=== PATIENT | female | born 1940 | race Caucasian/White ===

== ENCOUNTER 2021-11-26 11:03 | Outpatient (CLI) | payer MEDICARE, OTHER, SELFPAY ==
[2021-11-26 13:52] LABS: Albumin* 4.5 g/dL (3.3-5.0); Chloride* 104 mmol/L (96-114)
[2021-11-26 13:53] LABS: Potassium* 4.5 mmol/L (3.6-5.1); Sodium* 139 mmol/L (135-149)
[2021-11-26 13:55] LABS: Alkaline Phosphatase* 70 U/L (40-150); Aspartate Amino Transferase* 27 U/L (12-35); Bilirubin Total* 0.6 mg/dL (0.1-1.5); Blood Urea Nitrogen* 28 mg/dL (7-30); Carbon Dioxide* 27 mmol/L (20-32); Cholesterol* 202 mg/dL (90-199); Creatinine* 1.1 mg/dL (0.5-1.5); Estimated Glomerular Filt Rate 51 ml/min; Glucose* 105 mg/dL (60-115); Phosphorus* 3.7 mg/dL (2.5-4.5); Triglycerides* 132 mg/dL (40-149)
[2021-11-26 13:56] LABS: Alanine Aminotransferase* 19 U/L (4-35); HDL Cholesterol* 56 mg/dL (>=50); LDL Cholesterol Calculated 120 mg/dL (<100); Magnesium* 2.1 mg/dL (1.5-2.6)
== END 2021-11-26 11:04 | disposition home or self-care (01) ==
PROVIDERS: PCP Family Medicine; Visit Provider Family Medicine
DX: Z00.00 Encounter for general adult medical examination without abnormal findings (principal); E03.9 Hypothyroidism, unspecified; E78.5 Hyperlipidemia, unspecified; M81.0 Age-related osteoporosis without current pathological fracture; I10 Essential (primary) hypertension; K57.90 Diverticulosis of intestine, part unspecified, without perforation or abscess without bleeding
CPT/HCPCS: 80053; 80061; 83735; 84100; 84443

== ENCOUNTER 2021-12-22 14:06 | Outpatient (RCR) | payer MEDICARE, OTHER, SELFPAY ==
--- NOTE | 2021-12-12 12:26 | ONC.NURNOTE ---
Authorization: User: Sienna Carlson Margaretnadjaakiko Date: 05/26/21 14:58 Type: Eligibility Determination Note... Request received from [facility] for prior authorization of Prolia [id number]. Patient carries Medicare as primary insurance. Per CMS.gov LCD U04964 no prior authorization is required for Prolia. Services are based on medical necessity and follows Medicare guidelines.
--- NOTE | 2021-12-19 07:54 | ONC.NURNOTE ---
Pt left message to cancel her prolia injection today due to her 's medical emergency.
[2021-12-22 14:19] VITALS: BP 110/78; PULSE 69; RESP 16; TEMP 36.3; O2SAT 96
[2021-12-22] MEDS: DENOSUMAB 60 MG/ML SYRINGE SUBCUT (14:37)
--- NOTE | 2022-06-09 13:15 | URNOTE ---
Request received from [facility] for prior authorization of Prolia [id number]. Patient carries Medicare as primary insurance, no prior authorization is required for Prolia. Services are based on medical necessity and follows Medicare guidelines.
== END 2022-06-20 23:59 | disposition home or self-care (01) ==
LOC: CCIC 14:06
PROVIDERS: PCP Family Medicine; Referring Provider Family Medicine; Visit Provider Family Medicine
DX: M81.0 Age-related osteoporosis without current pathological fracture (principal)
CPT/HCPCS: 96372; J0897

== ENCOUNTER 2022-04-14 07:01 | Outpatient (CLI) | payer MEDICARE, OTHER, SELFPAY ==
--- NOTE | 2022-04-14 07:15 | MR_ITS ---
Patient:?Mundo Trevino D.O.B:?1940 Sex:?Female Phone:?[phone] [facility] MRN:?[id number] Exam Date:?04/14/2022 ? EXAM: MRI OF THE LEFT SHOULDER CLINICAL INFORMATION: The patient is a 81-year-old with left shoulder pain. Evaluate for rotator cuff tear. PRIOR SURGERY: None reported. COMPARISON STUDIES: Comparison is made to the prior MRI examination dated 10/03/2020. TECHNICAL INFORMATION: Imaging was performed on a high-field, 1.5 Nesha MR scanner. Axial proton-density and T2 imaging of the left shoulder was produced in addition to coronal proton-density, T2, and STIR imaging. The patient terminated the examination due to pain and no sagittal images were produced. It is recommended that the patient return for completion of the examination and possible. An addendum to this report will be gladly dictated no charge should the patient return. FINDINGS: Articular/Extraarticular collections: Effusion: Mild. Subacromial/subdeltoid: Mild to moderate fluid is seen within the subacromial/subdeltoid bursa, in keeping with changes of bursitis. Subcoracoid: No evidence for bursitis. Osseous structures: Proximal humerus: No evidence for bony injury to the proximal humerus can be seen. There is no evidence for greater tuberosity fracture. No Hill-Sachs or reverse Hill-Sachs deformity is seen. Glenoid: No acute bony abnormality of the glenoid fossa or glenoid neck can be seen. Acromioclavicular joint: Moderate changes of acromioclavicular joint arthrosis are present and can be seen on coronal series 4 image 10. Coracoacromial arch: Acromion morphology: No evidence for os acromiale. Acromiohumeral space: Mildly narrowed. Coracohumeral space: Within normal limits. Rotator cuff and deltoid: Supraspinatus: Moderate changes of supraspinatus tendinosis can be seen. Partial-thickness intrasubstance and deep surface tearing of the supraspinatus tendon fibers can be seen on coronal series 4 image 12 and on coronal series 6 image 12, measuring approximately 10 mm in greatest dimension and involving up to 70% of the tendon thickness. The tearing and tendinosis have progressed in appearance when compared to the prior examination, however no definite full- thickness tearing or retraction is seen. No atrophic changes of the supraspinatus muscle belly are identified. Infraspinatus: Moderate infraspinatus tendinosis can be seen without definite full or partial-thickness tearing. Atrophic changes of the infraspinatus muscle belly are present. Teres minor: No evidence for tendinosis, tearing, or associated muscle belly atrophy. Subscapularis: No evidence for tendinosis, tearing, or associated muscle belly atrophy. Deltoid: No evidence for strain or tearing. Biceps tendon: The intra-articular and biceps sulcus portions of the biceps tendon are normal. There is no evidence for rupture, dislocation, or subluxation. Glenohumeral joint and labrum: Articular Cartilage: Chondromalacia and chondral loss can be seen along the articular surfaces of the glenohumeral articulation. No osteoarthritic changes are present. Labrum: The anterior, posterior, superior, and inferior portions of the labrum appear intact. No evidence for paralabral ganglion cyst formation can be seen. Capsular Soft Tissues: No definite capsular abnormalities of the glenohumeral joint are seen. No evidence for capsular tearing is present and there are no MR signs of adhesive capsulitis. CONCLUSION: 1. Limited study. The patient could not complete the examination due to pain. It is recommended that the patient return for completion of the examination and possible. 2. Moderate supraspinatus and infraspinatus tendinosis with partial-thickness intrasubstance and deep surface tearing of the supraspinatus tendon fibers. No full-thickness tearing or retraction of the rotator cuff can be seen. 3. Mild to moderate subacromial/subdeltoid bursitis. 4. Moderate acromioclavicular joint arthrosis with mild narrowing of the acromiohumeral space. 5. No definite evidence for injury to the glenoid labrum or long head of the biceps can be seen. [facility] Electronically signed on 04/14/2022 1:24:00 PM by Basil Lawson M.D.
== END 2022-04-14 07:02 | disposition home or self-care (01) ==
LOC: MRI 07:02
PROVIDERS: PCP Family Medicine; Visit Provider Orthopaedic Surgery Sports Medicine
DX: M25.512 Pain in left shoulder (principal); M75.102 Unspecified rotator cuff tear or rupture of left shoulder, not specified as traumatic; M75.52 Bursitis of left shoulder; M19.012 Primary osteoarthritis, left shoulder
CPT/HCPCS: 73221

== ENCOUNTER 2022-06-02 08:45 | Outpatient (RCR) | payer MEDICARE, OTHER, SELFPAY | END 2022-09-24 23:59 | disposition home or self-care (01) | PROVIDERS: PCP Family Medicine; Visit Provider Orthopaedic Surgery Sports Medicine | DX: M75.102 Unspecified rotator cuff tear or rupture of left shoulder, not specified as traumatic (principal); M19.012 Primary osteoarthritis, left shoulder; M50.30 Other cervical disc degeneration, unspecified cervical region; G44.86 Cervicogenic headache; M25.512 Pain in left shoulder; Z51.89 Encounter for other specified aftercare | CPT/HCPCS: 97110; 97140; 97161 ==

== ENCOUNTER 2022-06-05 11:30 | Outpatient (CLI) | payer MEDICARE, OTHER, SELFPAY | END 2022-06-05 11:31 | disposition home or self-care (01) | LOC: NFLDREF 22:23 | PROVIDERS: PCP Family Medicine; Referring Provider Family Medicine; Visit Provider Family Medicine | DX: M81.0 Age-related osteoporosis without current pathological fracture (principal) | CPT/HCPCS: 80048; 83735; 84100 ==

== ENCOUNTER 2022-06-22 12:44 | Outpatient (RCR) | payer MEDICARE, OTHER, SELFPAY ==
[2022-06-22] MEDS: DENOSUMAB 60 MG/ML SYRINGE SUBCUT (13:06)
[2022-06-22 14:00] VITALS: BP 143/85; PULSE 59; RESP 16; TEMP 36.3; O2SAT 97
== END 2022-12-19 23:59 | disposition home or self-care (01) ==
LOC: CCIC 12:44
PROVIDERS: PCP Family Medicine; Referring Provider Family Medicine; Visit Provider Family Medicine
DX: M81.0 Age-related osteoporosis without current pathological fracture (principal)
CPT/HCPCS: 96372; J0897

== ENCOUNTER 2022-10-20 08:20 | Outpatient (CLI) | payer MEDICARE, OTHER, SELFPAY ==
--- OUTSIDE RECORDS SUMMARY | 2022-10-20 08:22 | XMS_ITS | Continuity of Care Document ---
Author Name Unknown Organization [facility] Address [address] [place] [address] Phone Care Team Providers Care Travel Clerk Name Role Phone Estuardo Odell MD Unavailable Unavailable Allergies, Adverse Reactions, Alerts Substance Reaction Status Criticality No Known Allergies Active No Inform ation Medications Medication Instructions Dosage Effective Dates (start - stop) Status Comments sulindac 200 mg tablet take 1 tablet by oral route 2 times every day with food 200 MG - Active levothyroxine 75 mcg tablet take 1 tablet by oral route every day 75 MCG - Active omeprazole 20 mg capsule,delayed release take 1 capsule by oral route every day before a meal 20 MG - Active aspirin 81 mg tablet,delayed release take 1 tablet by oral route every day 81 MG - Active lisinopril 10 mg tablet take 1 tablet by oral route every day 10 MG - Active CO Q-10 (unknown strength) take 1 by oral route every day Not Available - Active GLUCOSAMINE-CHONDRO ITIN (unknown strength) as directed Not Available - Active CALCIUM (unknown strength) take as directed Not Available - Active Vitamin D3 2,000 unit capsule take 1 Capsule by Oral route every day 1 Capsule - Active garlic tablet take daily - Active Feldene 20 mg capsule take 1 capsule by oral route every day 20 MG - No Longer Active Lodine 400 mg tablet take 1 tablet by oral route 2 times every day 400 MG - No Longer Active Procedures Procedure Date Office/Outpatient Visit, New Advance Directives Directive Yes / No Effective Date File Name No Information Encounters Encounter Description Practice Location Reason(s) For Visit Diagnoses Date Provider Providers Copied on Encounter [facility], [address], [place], [address], [place] tel:[phone] [facility] , No Information 9 Cass Christopher [facility] [address], [place], [address], [place]. tel:[phone] [facility], [address], [place], [address], [place] tel:[phone] [facility] , No Information 9 Cass Marte. [facility] [address], [place], [address], [place]. tel:[phone] Office/Outpa tient Visit, New [facility], [address], [place], [address], [place] tel:[phone] [facility] , OA, generalinzed 9 Cass Marte. [facility] [address], [place], [address], [place]. tel:[phone] Referring Provider: Estuardo Roman, [facility] [address], [place], [address]. tel:[phone] Family History Family Member Type Diagnosis Age At Onset Mother Problem (finding) osteoarthritis Father Problem (finding) osteoarthritis Mother Problem (finding) osteoporosis Payers Payer name Insurance type Covered democrat ID Authoriza tion(s) No Information Social History Type Description Quantity Date Captured Comments Sex Female Smoking Status No Information Chief Complaint And Reason For Visit No Information Reason For Referral Reason For Referral No Information History Of Present Illness Encounter Date Complaint History Of Prese nt Illness No Information Functional Status Date Functional Assessmen t No Information Medications Administered Medication Instructions Dosage Effective Dates (start - stop) Status Comments Feldene 20 mg capsule take 1 capsule by oral route every day 20 MG - No Longer Active Instructions Date Instruction Additional Infor mation No Information Assessments Type Assessment Date No Information Patient Care Teams Name Effective Dates (start - stop) Status Members No Information
--- OUTSIDE RECORDS SUMMARY | 2022-10-20 08:22 | XMS_ITS | Continuity of Care Document ---
Author Name Unknown Organization [facility] Address [address] [place] [address] Phone Care Team Providers Care Reformatory Attendant Name Role Phone Will Basil MARY Unavailable Unavailabl e Medications Medication Instructions Dosage Effective Dates (start - stop) Status Comments sulindac 200 mg tablet take 1 tablet by oral route 2 times every day with food 200 MG - Active Tirosint 75 mcg capsule take 1 capsule by oral route every day 75 MCG - Active rosuvastatin 10 mg tablet take 1 tablet by oral route every day 10 MG - Active omeprazole 20 mg capsule,delayed release take 1 capsule by oral route every day 30 minutes to 1 hour before a meal 20 MG - Active lisinopril 20 mg-hydrochlorothiazi de 12.5 mg tablet take 1 tablet by oral route every day 1.00 tablet - Active aspirin 81 mg tablet,delayed release take 1 tablet by oral route every day 81 MG - Active Glucosamine Chondroitin 550 mg-30 mg-1 mg capsule - Active krill oil 500 mg capsule - Active ksnnjnz-svfjwevet-vt nc 333 mg-133 mg-5 mg tablet - Active Vitamin D3 50 mcg (2,000 unit) capsule - Active Procedures Procedure Date ROUTINE BLOOD DRAW Drug Urine Toxology With Chromatography OFFICE/OUTPATIENT VISIT, EST Foll-up eval q3mo opiod tx OFFICE VISIT, EST TELEMEDICINE 20 PT-FOCUSED HLTH RISK ASSMT Drug Urine Toxology With Chromatography OFFICE/OUTPATIENT VISIT, NEW Advance Directives Directive Yes / No Effective Date File Name No Information Encounters Encounter Description Practice Location Reason(s) For Visit Diagnoses Date Provider Providers Copied on Encounter [facility], [address] [place] [address], [id number] , [place] tel: [phone] [facility] [place] No Information 2 Baltazar Gracia. [address], [place], [id number] , [place]. tel: [phone] [facility], [address] [place] [address], [id number] , [place] tel: [phone] [facility] [place] No Information 1 Arelis Paige. [address], [place], [place], [id number] , [place]. tel: [phone] Referring Provider: Basil Abarca, [address] [place] [address], [id number]. tel:[phone] OFFICE/OUTPAT IENT VISIT, EST [facility], [address] [place] [address], [id number] , [place] tel: [phone] [facility] Back Pain (chief complaint) Chronic pain syndromePostlamin ectomy syndrome, not elsewhere classifiedCervica lgiaEncounter for therapeutic drug level monitoring 1 Arelis Paige. [facility], [place], [place], [id number] , [place]. tel: [phone] Referring Provider: Basil Abarca, [address] [place] [address], [id number]. tel:[phone] OFFICE VISIT, EST TELEMEDICINE [facility], [address] [place] [address], [id number] , [place] tel: [phone] Telehealth Back Pain (chief complaint) Chronic pain syndromeCervicalg iaPostlaminectomy syndrome, not elsewhere classifiedLong term (current) use of opiate analgesic 0 Arelis Paige. [address], [place], [place], [id number] , [place]. tel:[phone] Referring Provider: Gwyn Mckenzie, [facility] [address], [place], [address]. tel:[phone] OFFICE/OUTPAT IENT VISIT, [facility], [address] [place], [place], [id number] , [place] tel:[phone] [facility] [place] Back Pain (chief complaint) Chronic pain syndromeCervicalg iaLow back painPrimary osteoarthritis, left shoulderPrimary osteoarthritis, right shoulderImpingeme nt syndrome of left shoulderImpingeme nt syndrome of right shoulderPostlamin ectomy syndrome, not elsewhere classified 0-202 0 Arelis Paige. [address], [place], [place], [id number] , [place]. tel:[phone] Referring Provider: Gwyn Mckenzie [facility] [address], [place], [address]. tel:[phone] Family History Family Member Type Diagnosis Age At Onset No Information Payers Payer name Insurance type Covered republican ID Marisa castro(s) Medicare MB [id number] Social History Type Description Quantity Date Captured Comments Sex Female Smoking Status No Information Chief Complaint And Reason For Visit No Information Reason For Referral Reason For Referral No Information Plan Of Treatment Date Type Action Status Goal BUSINESS APPLICATIONS ANALYST Scanned. Due on 021 due Goal ALT (SGPT). Due on due Goal BENDING PRESS OPERATOR Paperwork. Due on due Goal UDT. Due on due Goal AST (SGOT). Due on due Goal OARS. Due on due Goal Order Annual PT. Due on due Goal Creatinine. Due on due Goal Height. Due on d ue Goal Update Social History. Due o n due Goal PHQ-9. Due on du e Goal Review Allergy List. Due on due Goal Tobacco Use. Due on due Goal Medication Recon ciliation. Due on due Goal Weight. Due on d ue Goal Height. Due on d ue Goal Update Social History. Due o n due Goal PHQ-9. Due on du e Goal Review Allergy List. Due on due Goal Tobacco Use. Due on due Goal Medication Recon ciliation. Due on due Goal Weight. Due on d ue Goal BUSINESS APPLICATIONS ANALYST Scanned. Due on due Goal ALT (SGPT). Due on due Goal BENDING PRESS OPERATOR Paperwork. Due on due Goal UDT. Due on due Goal AST (SGOT). Due on due Goal OARS. Due on due Goal Order Annual PT. Due on due Goal Creatinine. Due on due Future Order: Lab Order Drug Teri t Def 22+ Classes (G0483), Ordered on: Ordered History Of Present Illness Encounter Date Complaint History Of Prese nt Illness Back Pain Duration: chroni c. The problem is worsening. It occurs persistently. Location of pain is lower back.The patient describes the pain as an ache and sharp. Symptoms are aggravated by ascending stairs, bending, descending stairs, lifting, running, standing, twisting and walking.The patient denies relieving factors. Back Pain (comments) Mundo pre sents for followup for lower back and neck pain. Since last OV, she has followed with [facility]. Per pt report, her back has gotten worse and she is not a surgical candidate.She remains uninterested in medications and SCS trial. Patient inquires about medical cannabis certification. Patient is not accompanied today and has no other concerns. Back Pain Severity level i s 8. Duration: chronic. The problem is stable. It occurs persistently. The patient describes the pain as numbness, sharp and tingling. Symptoms are aggravated by lifting, standing, walking and housework.The patient denies relieving factors. Back Pain (comments) Mundo pre sents for initial follow up regarding neck and low back pain.She remains uninterested in SCS trial. Neck and bilateral shoulder pain typically worsen with lying down/particular positioning. Lower back pain is exacerbated with daily activities. After discussion, she would like to trial Butrans at this time. Continues with alternatives such as Tylenol, Ibuprofen, and Robaxin as means to manage pain. Admits to some topical marijuana use in the recent past. No further questions or concerns. Back Pain (comments) Mundo is here for an initial consult for neck and low back pain referred by her PCP, Dr. Mckenzie. Back pain onset several years ago gradually without inciting event or injury. S/p multiple lumbar fusions, first in 1992 and again in [address] [facility] She reports her neck pain began about 3 years ago, also gradually and has been advised of multilevel degeneration. She also has hx of BL TKA and continues to report mild knee pain and stiffness. Pain inhibits her ability to sleep through the night and partake in ADLs. She would like to avoid surgery if possible.Underwent PT at [facility] without benefit. She reports previous lumbar RFA without significant benefit. Reports most recent imaging located at [facility]. Currently managed on Celebrex and Tylenol which provides her with some pain relief. Has previously trialed and failed Gabapentin, methocarbamol, ibuprofen, naproxen, tramadol.Mundo is interested in recommended therapies and would like [facility] to assume management of pain care. Back Pain Onset: gradual w ithout injury. Severity level is 6. Duration: chronic. It occurs persistently. Location of pain is lower back and neck. Pain is radiated to the left thigh and bilateral shoulders. Symptoms are aggravated by bending, daily activities, lifting and walking. Symptoms are relieved by heat, lying down and pain meds/drugs. Functional Status Date Functional Assessmen t No Information Instructions Date Instruction Additional Infor mation No Information Assessments Type Assessment Date No Information Patient Care Teams Name Effective Dates (start - stop) Status Members No Information
--- OUTSIDE RECORDS SUMMARY | 2022-10-20 08:22 | XMS_ITS | Continuity of Care Document ---
Author Name Unknown Organization [facility] Address [address] [place] [address] Phone Care Team Providers Care Quantitative Analyst Developer Name Role Phone Fredy Finnegan MD Unavailable Unavailable Allergies, Adverse Reactions, Alerts Substance Reaction Status Criticality nitroglycerin Active No Information morphine Active No Information codeine Active No Information Medications Medication Instructions Dosage Effective Dates (start - stop) Status Comments LISINOPRIL-HYDROCHLOROT HIAZIDE (unknown strength) Not Available - Active LISINOPRIL (unknown strength) Not Available - Active PROLIA (unknown strength) Not Available - Active ROSUVASTATIN CALCIUM (unknown strength) Not Available - Active TIROSINT (unknown strength) Not Available - Active FIRST-OMEPRAZOLE (unknown strength) Not Available - Active ASPIRIN (unknown strength) Not Available - Active Procedures Procedure Date Office/Outpatient Visit,Est, Mod 2020 Office/Outpatient Visit,New, [facility] 2017 Remove Lumbar Spine Lamina, 1 Seg Remove Added Spine Lamina, 1 Seg 2012 Pa Assist Remove Lumbar Spine Lamina, 1 Seg Pa Assist Remove Added Spine Lamina, 1 S eg Office/Outpatient Visit,Est, Mod 2012 Office/Outpatient Visit,Est, Mod 2012 Office/Outpatient Visit,Est, Low 2012 Drain/Inject Major Jointor Bursa 2012 Depomedrol 40 Mg Office/Outpatient Visit,New, Low 2011 Office/outpatient visit,est, mod 2006 X-ray exam lower spine 2-3 views 2006 Advance Directives Directive Yes / No Effective Date File Name No Information Encounters Encounter Description Practice Location Reason(s) For Visit Diagnoses Date Provider Providers Copied on Encounter [facility], [address], [place], [place], [id number], [place] tel:[phone] [facility] No Information Sep-0 8 1 Kain Daniel. [facility], [address] [place] [address] [address], [place], [place], [id number] , [place]. [phone] Office/Outpa tient Visit,Est, Mod [facility], [address], [place], [place], [id number], [place] tel:[phone] [facility] [place] Other intervertebra l disc degeneration, lumbar regionLow back painOther intervertebra l disc degeneration, lumbar region Oct- 1 Roger Boone. [facility], [address] [place] [address], [address], [place], [place], [id number] , [place]. [phone] Referring Provider: Paolo Sorensen, [facility] [address], [address], [place], [address]. tel:[phone] Office/Outpa tient Visit,New, Mod [facility], [address], [place], [place], [id number], [place] tel:[phone] [facility] [place] Other spondylosis, lumbar regionLow back pain Jan-0 8 Roger Boone. [facility], [address] [place] [address], [address], [place], [place], [id number] , [place]. [phone] Referring Provider: Paolo Sorensen, [facility] [address], [address], [place], [address]. tel:[phone] Z [facility], [address] [place], [place] [address], [address], [place] tel:[phone] [facility] No Information July- 3 Mindy Quinteros. [facility], [address] [place] [address], [address], [place], [place], [address] , [place]. tel:[phone] Referring Provider: Sona Sanchez, [facility] [address] [place], [address]. tel:[phone] Office/Outpa tient Visit,Est, Mod Z [facility], [address], [place], [address], [place] tel:[phone] [facility] No Information 0 9201 3 Mindy Quinteros. [facility], [address] [place] [address], [address], [place], [place], [address] , [place]. tel:[phone] Referring Provider: Sona Sanchez, [facility] [address] [place], [address]. tel:[phone] Office/Outpa tient Visit,Est, Mod Z [facility], [address] [place] [address], [address], [place] tel:[phone] [facility] No Information 201 3 Mindy Quinteros. [facility], [address] [place] [address], [address], [place], [place], [address] , [place]. tel:[phone] Referring Provider: Elia Morocho, [address], [address]. tel:[phone] Office/Outpa tient Visit,Est, Low Z [facility], [address] [place] [address], [address], [place] tel:[phone] [facility] Hypothyroidis mGERD 7201 3 Mindy Quinteros. [facility], [address] [place] [address], [address], [place], [place], [address] , [place]. tel:[phone] Referring Provider: Aldair Serrano, [facility] [address] [place], [address], [place], [address]. tel:[phone] Office/Outpa tient Visit,New, Low Z [facility], [address] [facility], [place], [address], [place] tel:[phone] [facility] No Information 201 2 Guillen Aldair. [facility], [address], [address], [place], [place], [address] , . tel:[phone] Referring Provider: Elia Morocho, [address], [address]. tel:[phone] Office/outpa tient visit,est, mod Z [facility], [address], [place], [address], [place] tel:[phone] [facility] No Information 7 Guillen Aldair. [facility], [address], [address], [place], [place], [address] , . tel:[phone] Referring Provider: Elia Morocho, [address], [address]. tel:[phone] Family History Family Member Type Diagnosis Age At Onset No Information Payers Payer name Insurance type Covered green party ID Authorchava castro(s) Medicare MB [id number] [facility] [id number] Social History Type Description Quantity Date Captured [...]
== END 2022-10-20 08:21 | disposition home or self-care (01) ==
PROVIDERS: PCP Family Medicine; Visit Provider Family Medicine
DX: E78.5 Hyperlipidemia, unspecified (principal); E03.9 Hypothyroidism, unspecified; I10 Essential (primary) hypertension; E66.9 Obesity, unspecified
CPT/HCPCS: 80053; 80061

== ENCOUNTER 2022-12-21 10:57 | Outpatient (CLI) | payer MEDICARE, OTHER, SELFPAY ==
--- OUTSIDE RECORDS SUMMARY | 2022-12-24 10:43 | XMS_ITS | Continuity of Care Document ---
Author Name Unknown Organization [facility] Address [address] [place] [address] Phone Care Team Providers Care Net Application Architect Name Role Phone Will Basil MARY Unavailable Unavailabl e Medications Medication Instructions Dosage Effective Dates (start - stop) Status Comments sulindac 200 mg tablet take 1 tablet by oral route 2 times every day with food 200 MG - Active Vitamin D3 50 mcg (2,000 unit) capsule - Active cpctkhk-knvnxkicp-kt nc 333 mg-133 mg-5 mg tablet - Active krill oil 500 mg capsule - Active Glucosamine Chondroitin 550 mg-30 mg-1 mg capsule - Active aspirin 81 mg tablet,delayed release take 1 tablet by oral route every day 81 MG - Active lisinopril 20 mg-hydrochlorothiazi de 12.5 mg tablet take 1 tablet by oral route every day 1.00 tablet - Active omeprazole 20 mg capsule,delayed release take 1 capsule by oral route every day 30 minutes to 1 hour before a meal 20 MG - Active rosuvastatin 10 mg tablet take 1 tablet by oral route every day 10 MG - Active Tirosint 75 mcg capsule take 1 capsule by oral route every day 75 MCG - Active Procedures Procedure Date ROUTINE BLOOD [...] Diagnoses Date Provider Providers Copied on Encounter [facility], [address] [place] [address], [id number] , [place] tel: [phone] [facility] No Information 2 Baltazar Gracia. [address] [place], [place], [address] , [place]. tel: [phone] [facility], [address] [place] [address], [id number] , [place] tel: [phone] [facility] [place] No Information 1 Arelis Paige. [address], [place], [place], [address] , [place]. tel: [phone] Referring Provider: Basil Abarca, [address] [place] [address], [address]. tel:[phone] OFFICE/OUTPAT IENT VISIT, EST [facility], [address] [place] [address], [id number] , [place] tel: [phone] [facility] (chief complaint) Chronic pain syndromePostlamin ectomy syndrome, not elsewhere classifiedCervica lgiaEncounter for therapeutic drug level monitoring 1 Arelis Paige. [facility], [place], [place], [address] , [place]. tel: [phone] Referring Provider: Basil Abarca, [address] [place] [address], [address]. tel:[phone] OFFICE VISIT, EST TELEMEDICINE [facility], [address] [place] [address], [id number] , [place] tel: [phone] [facility] Back Pain (chief complaint) Chronic pain syndromeCervicalg iaPostlaminectomy syndrome, not elsewhere classifiedLong term (current) use of opiate analgesic 0 Arelis Paige. [address], [place], [place], [address] , [place]. tel:[phone] Referring Provider: Gwyn Mckenzie, [facility] [address], [place], [address]. tel:[phone] OFFICE/OUTPAT IENT VISIT, [facility], [address] [place], [address] , [place] tel:[phone] [facility] [place] Back Pain (chief complaint) Chronic pain syndromeCervicalg iaLow back painPrimary osteoarthritis, left shoulderPrimary osteoarthritis, right shoulderImpingeme nt syndrome of left shoulderImpingeme nt syndrome of right shoulderPostlamin ectomy syndrome, not elsewhere classified 0-202 0 Arelis Paige. [address], [place], [place], [address] , [place]. tel:[phone] Referring Provider: Gwyn Mckenzie [facility] [address], [place], [address]. tel:[phone] Family History Family Member Type Diagnosis Age At Onset No Information Payers Payer name Insurance type Covered republican ID Marisa castro(s) Medicare MB [id number] Social History Type Description Quantity Date Captured Comments Sex Female Smoking Status No Information Chief Complaint And Reason For Visit No Information Reason For Referral Reason For Referral No Information Plan Of Treatment Date Type Action Status Goal Weight. Due on d ue Goal Medication Recon ciliation. Due on due Goal Tobacco Use. Due on 022 due Goal Review Allergy List. Due on due Goal PHQ-9. Due on du e Goal Update Social History. Due o n due Goal Height. Due on d ue Goal Creatinine. Due on due Goal Order Annual PT. Due on due Goal OARS. Due on due Goal AST (SGOT). Due on due Goal UDT. Due on due Goal BUSINESS SYSTEMS DEVELOPER Paperwork. Due on due Goal ALT (SGPT). Due on due Goal CONFERENCE ORGANIZER Scanned. Due on due Goal Medication Recon ciliation. Due on due Goal Weight. Due on d ue Goal CONFERENCE ORGANIZER Scanned. Due on due Goal ALT (SGPT). Due on due Goal BUSINESS SYSTEMS DEVELOPER Paperwork. Due on due Goal UDT. Due on due Goal AST (SGOT). Due on due Goal OARS. Due on due Goal Order Annual PT. Due on due Goal Creatinine. Due on due Goal Tobacco Use. Due on due Goal Review Allergy List. Due on due Goal PHQ-9. Due on du e Goal Update Social History. Due o n due Goal Height. Due on d ue Future Order: Lab Order Drug Teri t [...] Since last OV, she has followed with [facility]. Per pt report, her back has gotten worse and she is not a surgical candidate.She remains uninterested in medications and SCS trial. Patient inquires about medical cannabis certification. Patient is not accompanied today and has no other concerns. Back Pain (comments) Mundo pre sents for [...] No further questions or concerns. Back Pain Severity level i s 8. Duration: chronic. The problem is stable. It occurs persistently. The patient describes the pain as numbness, sharp and tingling. Symptoms are aggravated by lifting, standing, walking and housework.The patient denies relieving factors. Back Pain Onset: gradual w ithout injury. Severity level is 6. Duration: chronic. It occurs persistently. Location of pain is lower back and neck. Pain is radiated to the left thigh and bilateral shoulders. Symptoms are aggravated by bending, daily activities, lifting and walking. Symptoms are relieved by heat, lying down and pain meds/drugs. Back Pain (comments) Mundo is here for [...] to avoid surgery if possible.Underwent PT at [facility] without benefit. She reports previous lumbar RFA without significant benefit. Reports most recent imaging located at [facility]. Currently managed on Celebrex and Tylenol which provides her with some pain relief. Has previously trialed and failed Gabapentin, methocarbamol, ibuprofen, naproxen, tramadol.Mundo is interested in recommended therapies and would like [facility] to assume management of pain care. Functional Status Date Functional Assessmen t No Information Instructions Date Instruction Additional Infor mation No Information Assessments Type Assessment Date No Information Patient Care Teams Name Effective Dates (start - stop) Status Members No Information
--- OUTSIDE RECORDS SUMMARY | 2022-12-24 10:43 | XMS_ITS | Continuity of Care Document ---
Author Name Unknown Organization [facility] Address [address] [place] [address] Phone Care Team Providers Care Pie Dough Roller Name Role Phone Estuardo Odell MD Unavailable [...] [facility], [address], [place], [address], [place] tel:[phone] [facility] , No Information 9 Cass Christopher [facility] [address], [place], [address], [place]. tel:[phone] [facility], [address], [place], [address], [place] tel:[phone] [facility] , No Information 9 Cass Marte. [facility] [address], [place], [address], [place]. tel:[phone] Office/Outpa tient Visit, New [facility], [address], [place], [address], [place] tel:[phone] [facility] , OA, generalinzed 9 Cass Marte. [facility] [address], [place], [address], [place]. tel:[phone] Referring Provider: Estuardo Roman, [facility] [address], [place], [address]. tel:[phone] Family History Family Member Type Diagnosis Age At Onset Mother Problem (finding) osteoarthritis Father Problem (finding) osteoarthritis Mother Problem (finding) osteoporosis Payers Payer name Insurance type Covered green party ID Authoriza tion(s) No Information Social History [...]
--- OUTSIDE RECORDS SUMMARY | 2022-12-24 10:43 | XMS_ITS | Continuity of Care Document ---
Author Name Unknown Organization [facility] Address [address] [place] [address] Phone Care Team Providers Care Supervisor Electric Name Role Phone Fredy Finnegan MD Unavailable [...] Date Office/Outpatient Visit,Est, Mod 2020 Office/Outpatient Visit,New, [facility] 2017 Remove Lumbar Spine Lamina, 1 Seg [...] Copied on Encounter [facility], [address], [place], [place], [id number], [place] tel:[phone] [facility] No Information Sep-0 8 1 Kain Daniel. [facility] [place], [address] [place] [address] [address], [place], [place], [address] , [place]. [phone] Office/Outpa tient Visit,Est, Mod [facility], [address], [place], [place], [address], [place] tel:[phone] [facility] [place] Other intervertebra l disc degeneration, lumbar regionLow back painOther intervertebra l disc degeneration, lumbar region Oct- 1 Roger Boone. [facility] [place], [address] [place] [address], [address], [place], [place], [address] , [place]. [phone] Referring Provider: Paolo Sorensen, [facility] [address], [address], [place], [address]. tel:[phone] Office/Outpa tient Visit,New, Mod [facility], [address], [place], [place], [address], [place] tel:[phone] [facility] [place] Other spondylosis, lumbar regionLow back pain Jan-0 8 Roger Boone. [facility] [place], [address] [place] [address], [address], [place], [place], [address] , [place]. [phone] Referring Provider: Paolo Sorensen, [facility] [place] [address], [address], [place], [address]. tel:[phone] Z [facility] [place], [address] [place], [place] [address], [place], [address], [place] tel:[phone] [facility] No Information July- 3 Mindy Quinteros. [facility] [place], [address] [place] [address], [address], [place], [place], [address] , [place]. tel:[phone] Referring Provider: Sona Sanchez, [facility] [address] [place], [address]. tel:[phone] Office/Outpa tient Visit,Est, Mod Z [facility], [address], [place], [address], [place] tel:[phone] [facility] No Information 0 9201 3 Mindy Quinteros. [facility] [place], [address] [place] [address], [address], [place], [place], [address] , [place]. tel:[phone] Referring Provider: Sona Sanchez, [facility] [address] [place], [address]. tel:[phone] Office/Outpa tient Visit,Est, Mod Z [facility] [place], [address] [place] [address], [address], [place] tel:[phone] [facility] No Information 201 3 Mindy Quinteros. [facility] [place], [address] [place] [address], [address], [place], [place], [address] , [place]. tel:[phone] Referring Provider: Elia Morocho, [address], [address]. tel:[phone] Office/Outpa tient Visit,Est, Low Z [facility], [address] [place] [address], [address], [place] tel:[phone] [facility] Hypothyroidis mGERD 7201 3 Mindy Quinteros. [facility] [place], [address] [place] [address], [address], [place], [place], [address] , [place]. tel:[phone] Referring Provider: Aldair Serrano, [facility] [place] [address], [address], [place], [address]. tel:[phone] Office/Outpa tient Visit,New, Low Z [facility] [place], [address] [facility], [place], [address], [place] tel:[phone] [facility] No Information 201 2 Guillen Aldair. [facility], [address], [address], [place], [place], [address] , . tel:[phone] Referring Provider: Elia Morocho, [address], [address]. tel:[phone] Office/outpa tient visit,est, mod Z [facility] [place], [address], [place], [address], [place] tel:[phone] [facility] No Information 7 Guillen Aldair. [facility] [place], [address], [address], [place], [place], [address] , . tel:[phone] Referring Provider: Elia Morocho, [address], [address]. tel:[phone] Family History Family Member Type Diagnosis Age At Onset No Information Payers Payer name Insurance type Covered alliance party ID Authorchava castro(s) Medicare MB [id number] [facility] [id number] Social History Type Description Quantity Date Captured [...]
--- OUTSIDE RECORDS SUMMARY | 2022-12-24 10:44 | XMS_ITS | Patient Health Record ---
Author Name Unknown Organization [facility] Address [address] [place] [address] [address] [place] [address] Care Team Providers Care Awning Hanger Supervisor Name Role Phone No Primary, Care Primary Care Provider Unavailab nesha JerryvibhaCristopher baileyjohann Unavailable [phone] Paolo Pro Unavailable Unavailable ALLERGIES Allergen (clinical drug ingredient) Drug/Non Drug Allergy documented on EMR Reaction Allergy Type Onset Date Status nitrate (uncoded) Decrease blood pressure Allergy Active codeine Codeine chest pain Drug Allergy Active morphine Morphine anaphylaxis Drug Allergy Activ e oxycodone Oxycodone Confusion Drug Allergy Active tizanidine Tizanidine dizziness Drug Allergy Activ e REASON FOR REFERRAL No Information MEDICATIONS Medication SIG (Take, Route, Frequency, Duration) Notes Start Date End Date Status tiZANidine HCl 4 MG 0.5-2 tablet as need ed Orally qhs for 30 days 10/22/2020 Active Rosuvastatin Calcium 10 MG Oral for 90 Active Sulindac 200 MG Oral for 90 Ac tive Omeprazole 10 MG 1 capsule 30 minutes before morning meal Orally Once a day Active Lisinopril-hydroCHLOROthiazi de 20-12.5 MG Oral for 90 Active DULoxetine HCl 30 MG 1 capsule Orally On ce a day for 7 days 10/22/2020 Active DULoxetine HCl 60 MG 1 capsule Orally On ce a day for 30 day(s) 10/22/2020 Active Levothyroxine Sodium 75 MCG Oral for 90 Active SOCIAL HISTORY Tobacco Use: Social History Observation Description Date Details (start date - stop date) Never Smoker NA - NA Sex Assigned At : Social History Observation Description Sex Assigned At Unknown Tobacco Use/Smoking: Question Answer Notes Are you a nonsmoker Alcohol Screen Question Answer Notes Did you have a drink contain ing alcohol in the past year? Yes How often did you have a dri nk containing alcohol in the past year? 2 to 4 times a month (2 points) How many drinks did you have on a typical day when you were drinking in the past year? 1 or 2 drinks (0 point) How often did you have 6 or more drinks on one occasion in the past year? Never (0 point) Points 2 Interpretation Negative PROBLEMS Problem Type ICD Code Onset Dates Problem Status W/U Status Risk SNOMED Code Notes Problem Other chronic pain (G89.29) Active confirmed Chronic pain (57931630) Problem Spondylosis without myelopathy or radiculopathy, cervical region (M47.812) Active confirmed Cervical spondylosis without myelopathy (120445483) Problem Low back pain (M54.5) Active confirmed Low back pain (701395676) PLAN OF TREATMENT No Information Insurance Providers Payer Name Payer Address Payer Phone Subscriber Number Group Number Insured Name Patient Relationship to Insured Coverage Start Date Coverage End Date Medicare Part B [employer] [address] [place] [address] [id number] Mundo Ortega Self - patient is the insured [facility] [address] [place] [address] [id number] Mundo Ortega Self - patient is the insured 8 MEDICAL (GENERAL) HISTORY Medical History History ICD Code Arthritis Hypertension osteopenia Thyroid problem Surgical History Surgery Date(Month/Year) Lumbar fusion 1992 Lumbar decompression 2012
== END 2022-12-21 10:58 | disposition home or self-care (01) ==
LOC: NFLDREF 12-24 10:42
PROVIDERS: PCP Family Medicine; Referring Provider Family Medicine; Visit Provider Family Medicine
DX: I10 Essential (primary) hypertension (principal); M81.0 Age-related osteoporosis without current pathological fracture
CPT/HCPCS: 80048; 84100

== ENCOUNTER 2022-12-28 09:30 | Outpatient (RCR) | payer MEDICARE, OTHER, SELFPAY ==
[2022-12-28 10:30] VITALS: BP 124/74; PULSE 73; RESP 14; TEMP 36.1; O2SAT 96
[2022-12-28] MEDS: DENOSUMAB 60 MG/ML SYRINGE SUBCUT (10:38)
--- NOTE | 2023-06-18 14:28 | ONC.NURNOTE ---
Pt called wondering if [facility] had received Prolia orders from Dr. Lopez office. No orders received yet. Electroencephalogram Technologist called De. Mckenzie's office and requested orders for prolia.
--- NOTE | 2023-06-23 10:03 | URNOTE ---
Request received from [facility] for prior authorization of Prolia [id number]. Patient carries Medicare as primary insurance, no prior authorization is required for Prolia. Services are based on medical necessity and follows Medicare guidelines.
--- NOTE | 2023-06-23 13:15 | PC.NURSE ---
Diagnosis: Osteoporosis
== END 2023-06-26 23:59 | disposition home or self-care (01) ==
LOC: CCIC 09:30
PROVIDERS: PCP Family Medicine; Referring Provider Family Medicine; Visit Provider Family Medicine
DX: M81.0 Age-related osteoporosis without current pathological fracture (principal)
CPT/HCPCS: 96372; J0897

== ENCOUNTER 2023-03-04 19:18 | Emergency (ER) | payer MEDICARE, OTHER, SELFPAY ==
[2023-03-04 19:41] VITALS: BP 168/106; PULSE 73; RESP 16; TEMP 36.7; O2SAT 98; BMI 31.3
--- NOTE | 2023-03-04 20:11 | CRLHL7_ITS ---
For Patients: As a result of the Century Cures Act, medical imaging exams and procedure reports are released immediately into your electronic medical record. You may view this report before your referring provider. If you have questions, please contact your health care provider. INDICATION: fall, hit left side of face CT CERVICAL SPINE WITHOUT CONTRAST TECHNIQUE: Multidetector axial CT imaging was performed through the cervical spine, without contrast. Sagittal and coronal reconstructions were generated. FINDINGS: No acute fractures are identified. There is straightening of cervical lordosis, possibly due to muscle spasm. Osseous alignment is otherwise unremarkable and no subluxation is seen. Prevertebral soft tissues appear normal. There are multilevel cervical spine degenerative changes, including diffuse degenerative disc disease and scattered cervical facet joint degenerative changes. Included portions of the airway and lung apices are within normal limits. IMPRESSION: 1. Straightened lordosis, possibly due to muscle spasm. No fracture, subluxation, or other acute finding identified. 2. Cervical spondylosis, as noted above. IZABELLA MURPHY MD [facility] Please note that all CT scans at this facility use dose modulation, iterative reconstruction, and/or weight-based dosing when appropriate to reduce radiation dose to as low as reasonably achievable. Dictated by: Isac Murphy MD @ 03/04/2023 22:01:21 (Electronically Signed)
--- NOTE | 2023-03-04 20:11 | CRLHL7_ITS ---
For Patients: As a result of the Century Cures Act, medical imaging exams and procedure reports are released immediately into your electronic medical record. You may view this report before your referring provider. If you have questions, please contact your health care provider. INDICATION: Fall, hit left side of face.. TECHNIQUE: Head CT without contrast. COMPARISON: None. FINDINGS: CSF spaces: Within normal limits for age. Brain parenchyma and extra-axial spaces: There are nonspecific low attenuation white matter changes consistent with chronic microvascular disease. 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 No sign of mass, hemorrhage, or midline shift. Skull base and calvarium: The visualized paranasal sinuses and mastoid air cells demonstrate no acute or significant findings. The visualized orbits are grossly unremarkable. No skull fractures. IMPRESSION: No intracranial hemorrhage identified. No skull fractures identified. Please note that all CT scans at this facility use dose modulation, iterative reconstruction, and/or weight-based dosing when appropriate to reduce radiation dose to as low as reasonably achievable. Dictated by Randi Harmon MD @ 03/04/2023 9:45:01 PM (Electronically Signed)
--- NOTE | 2023-03-04 20:11 | CRLHL7_ITS ---
For Patients: As a result of the Cures Act, medical imaging exams and procedure reports are released immediately into your electronic medical record. You may view this report before your referring provider. If you have questions, please contact your health care provider. Indication: Hurt left shoulder. Technique: Left shoulder three views. Comparison: None Findings: No acute fracture or dislocation. Degenerative changes of the acromioclavicular joint. No additional osseous abnormality. Soft tissues as imaged are unremarkable. Impression: No acute osseous abnormality. Dictated by Sunday Polanco MD @ 03/04/2023 9:40:43 PM (Electronically Signed)
--- NOTE | 2023-03-04 20:11 | CRLHL7_ITS ---
For Patients: As a result of the Century Cures Act, medical imaging exams and procedure reports are released immediately into your electronic medical record. You may view this report before your referring provider. If you have questions, please contact your health care provider. Indication: Hurt thumb and bases of MCP across hand. Technique: Left hand three views. Comparison: None. Findings: No acute fracture or dislocation. Scattered mild to moderate degenerative changes of the hand and wrist. No additional osseous abnormality. Apparent soft tissue swelling about the wrist and near the metacarpal phalangeal joints. No radiopaque foreign body evident. Impression: No acute osseous abnormality. Dictated by Sunday Polanco MD @ 03/04/2023 9:44:40 PM (Electronically Signed)
--- NOTE | 2023-03-04 20:11 | CRLHL7_ITS ---
For Patients: As a result of the Cures Act, medical imaging exams and procedure reports are released immediately into your electronic medical record. You may view this report before your referring provider. If you have questions, please contact your health care provider. INDICATION: fall, hit left side of face CT FACE WITHOUT CONTRAST TECHNIQUE: Multidetector axial CT imaging was performed through the face without contrast. Coronal and sagittal reconstructions were generated. FINDINGS: No acute fractures are identified. The orbits and their contents are within normal limits. The paranasal sinuses show scattered trace mucosal thickening. The mandible and temporomandibular joints are intact. Right TMJ DJD is noted. Mastoid air cells are clear. IMPRESSION: No fracture or other acute finding. IZABELLA MURPHY MD [facility] Please note that all CT scans at this facility use dose modulation, iterative reconstruction, and/or weight-based dosing when appropriate to reduce radiation dose to as low as reasonably achievable. Dictated by: Isac Murphy MD @ 03/04/2023 21:59:38 (Electronically Signed)
--- NOTE | 2023-03-04 20:55 | ED_ITS ---
HPI - Fall General Date Seen: 03/04/23 Chief Complaint: Fall/Minor Trauma Stated Complaint: Fell tonight in garage-face lac, L shoulder/hand Time Seen by Provider: 03/04/23 20:07 Source: patient Mode of arrival: ambulatory Limitations: no limitations History of Present Illness HPI Narrative: Patient is an 82-year-old female presenting to the emergency department after a fall. She states she was in her garage around 17:30 which was walking with her cane and misplaced her cane while stepping causing her fall to her knees and then to her left side hitting her left shoulder and face. She was able to get herself back up and has been ambulatory since then. Her last tetanus shot was 2021. Has some abrasions to the left side of her face it does complain with left shoulder and left hand pain. Denies headache, lightheadedness, dizziness, weakness, numbness, fevers, chills, chest pain, shortness of breath, abdominal pain. She denies being on any blood thinners. She does take a baby aspirin each morning. Denies any other injuries at this time. Related Data Home Medications Medication Instructions Recorded Confirmed aspirin 81 mg tablet,delayed 81 mg PO DAILY 11/28/21 11/19/22 release calcium-magnesium 750 mg-465 mg 1 tab PO DAILY 11/28/21 11/19/22 tablet cholecalciferol (vitamin D3) 50 50 mcg PO QDAY 11/28/21 11/19/22 mcg (2,000 unit) capsule denosumab 60 mg/mL subcutaneous 60 mg subcut [id number] 11/28/21 11/19/22 syringe glucosamine-chondroitin 500 mg-400 1 cap PO .Bedtime 11/28/21 11/19/22 mg capsule omega-3 fatty acids 1,000 mg 1,000 mg PO QDAY 11/28/21 11/19/22 capsule Previous Rx's Medication Instructions Recorded nystatin 100,000 unit/gram topical 1 applic topical BID PRN rash #30 11/28/21 cream grams polyethylene glycol 3350 17 4 g PO QDAY PRN constipation #510 11/28/21 gram/dose oral powder grams omeprazole 20 mg capsule,delayed 20 mg PO DAILY #90 caps 07/24/22 release hydrocodone 5 mg-acetaminophen 300 1 tab PO Q6H PRN pain #30 tabs 10/20/22 mg tablet lisinopril 20 mg tablet 20 mg PO QDAY #90 tabs 10/20/22 rosuvastatin 10 mg tablet 10 mg PO QDAY #90 tabs 12/04/22 mupirocin 2 % topical ointment 1 applic topical TID PRN rash #22 01/12/23 grams cholecalciferol (vitamin D3) 50 50 mcg PO QDAY #90 caps 02/23/23 mcg (2,000 unit) capsule levothyroxine 75 mcg tablet 75 mcg PO DAILY #90 tabs 02/23/23 lisinopril 20 1 tab PO .qod #45 tabs 02/23/23 mg-hydrochlorothiazide 12.5 mg tablet sulindac 200 mg tablet 200 mg PO BID #180 tabs 02/23/23 Allergies Allergy/AdvReac Type Severity Reaction Status Date / Time codeine Allergy Severe Chest Pain Verified 11/19/22 13:25 morphine Allergy Severe Difficulty Verified 11/19/22 13:25 Breathing oxycodone Allergy Severe unable to Verified 11/19/22 13:25 talk or respond Nitrate-based vasodilating Allergy Unknown Uncoded 11/19/22 13:25 agent Review of Systems Status of ROS: Reports: 10 or more systems reviewed and unremarkable except as noted in History and below [facility] Medical History (Updated 03/04/23 @ 21:50 by Baldev Clement DO) Limited mobility ?Z74.09 - Other reduced mobility (ICD-10) Shoulder pain ?M25.519 - Pain in unspecified shoulder (ICD-10) Burning with urination ?R30.0 - Dysuria (ICD-10) Atypical chest pain ?R07.89 - Other chest pain (ICD-10) Abdominal pain (11/16/13) ?R10.9 - Unspecified abdominal pain (ICD-10) Candidal skin infection ?B37.2 - Candidiasis of skin and nail (ICD-10) Surgical History History of hysterectomy (11/13/10) ?Z90.710 - Acquired absence of both cervix and uterus (ICD-10) History of tonsillectomy and adenoidectomy (11/13/10) ?Z90.89 - Acquired absence of other organs (ICD-10) Hx of cholecystectomy (11/13/10) ?Z90.49 - Acquired absence of other specified parts of digestive tract (ICD- 10) 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) ?Z96.652 - Presence of left artificial knee joint (ICD-10) History of lumbar surgery ?Z98.890 - Other specified postprocedural states (ICD-10) S/P right knee arthroscopy (04/06/16) ?Z98.890 - Other specified postprocedural states (ICD-10) Status post total right knee replacement (09/10/14) ?Z96.651 - Presence of right artificial knee joint (ICD-10) Family History (Updated 11/26/21 @ 20:55 by Mariya Munguia) Other Colon cancer Social History Smoking Status: Never smoker Second hand tobacco smoke exposure: No How often do you have a drink containing alcohol: never How often do you have six or more drinks on one occasion: Never AUDIT-C Alcohol total score: 0 Non-prescribed substance use: denies use Exam Narrative: Exam Narrative: Const: Well-nourished, Well-developed, in no distress Eyes: PERRL, no conjunctival injection, and symmetrical lids HENT: Abrasions are noted to nose and left side of face.. Moist mucous membranes. Neck: Symmetric, trachea midline, No thyromegaly. CVS: RRR, No murmurs or gallops. Peripheral pulses 2+ and equal in all extremities RESP: Unlabored respiratory effort. Clear to auscultation bilaterally. GI: Nontender/Nondistended, No rebound or guarding. MSK:Extremities w/o deformity, Normal Active ROM, tenderness to left shoulder, left thumb and MCP joints of left hand Skin: Warm, Dry. No rashes or lesions. Neuro: Normal Muscle tone, No focal neurological deficits. Psych: Awake, Alert, & Oriented x3. Appropriate mood and affect. Const: Vital Signs, click to edit/add: Vital Signs - 24 hr 03/04/23 19:41 Temperature 98.1 F Pulse Rate [Pulse Oximeter] 73 Respiratory Rate 16 Blood Pressure [Ri ght Upper Arm] 168/106 H Pulse Oximetry 98 Oxygen Delivery Me thod Room Air Course Vital Signs Vital signs: Initial Vital Signs Temperature 98.1 F 03/04/23 19:41 Temperature Source Temporal Artery Scan 03/04/23 19:41 Pulse Rate 73 03/04/23 19:41 Respiratory Rate 16 03/04/23 19:41 Blood Pressure 168/106 H 03/04/23 19:41 Blood Pressure Mean 126 H 03/04/23 19:41 Blood Pressure Position Sitting 03/04/23 19:41 Pulse Oximetry 98 03/04/23 19:41 Oxygen Delivery Method Room Air 03/04/23 19:41 Vital Signs Temperature 98.1 F 03/04/23 19:41 Pulse Rate 73 03/04/23 19:41 Respiratory Rate 16 03/04/23 19:41 Blood Pressure 168/106 H 03/04/23 19:41 Pulse Oximetry 98 03/04/23 19:41 Oxygen Delivery Method Room Air 03/04/23 19:41 Temperature 98.1 F 03/04/23 19:41 Pulse Rate 73 03/04/23 19:41 Respiratory Rate 16 03/04/23 19:41 Blood Pressure 168/106 H 03/04/23 19:41 Pulse Oximetry 98 03/04/23 19:41 Oxygen Delivery Method Room Air 03/04/23 19:41 MDM - Fall MDM Narrative Medical decision making narrative: Patient is an 82-year-old female presenting to the department after a mechanical fall. She states there was no lightheadedness or dizziness associated with it and she tripped while using her cane. She is up-to-date on her tetanus shot. She is not any blood thinners but considering her age and everything I do think she would do CT scans. CT scan of her head, cervical spine, face were all ordered. Also ordered x-rays of her left hand and left shoulder. She has not required any pain medicine at this time. Imaging Data Hand x-ray: Radiologist's impression: No acute osseous abnormality. Dictated by Sunday Polanco MD @ 03/04/2023 9:44:40 PM Shoulder x-ray: Radiologist's impression: No acute osseous abnormality. Dictated by Sunday Polanco MD @ 03/04/2023 9:40:[address] scan head: Radiologist's impression: No intracranial hemorrhage identified. No skull fractures identified. Please note that all CT scans at this facility use dose modulation, iterative reconstruction, and/or weight-based dosing when appropriate to reduce radiation dose to as low as reasonably achievable. Dictated by Randi Harmon MD @ 03/04/2023 9:45:[address] cervical spine: Radiologist's impression: 1. Straightened lordosis, possibly due to muscle spasm. No fracture, subluxation, or other acute finding identified. 2. Cervical spondylosis, as noted above. IZABELLA MURPHY MD [facility] Please note that all CT scans at this facility use dose modulation, iterative reconstruction, and/or weight-based dosing when appropriate to reduce radiation dose to as low as reasonably achievable. Dictated by: Isac Murphy MD @ 03/04/2023 22:01:21 CT facial bones: Radiologist's impression: No fracture or other acute finding. IZABELLA MURPHY MD [facility] Please note that all CT scans at this facility use dose modulation, iterative reconstruction, and/or weight-based dosing when appropriate to reduce radiation dose to as low as reasonably achievable. Dictated by: Isac Murphy MD @ 03/04/2023 21:59:38 Discharge Plan Discharge Clinical Impression: Closed head injury Qualifiers: Encounter type: initial encounter Qualified Code(s): S09.90XA - Unspecified in jury of head, initial encounter Patient Disposition: Home, Self-Care Condition: Stable Instructions: Fall Prevention for Older Adults (ED), Head Injury (ED) Additional Instructions: Take Tylenol and ibuprofen as needed for pain. Return to the emergency department for any new or worsening symptoms. Prescriptions: No Action glucosamine-chondroitin 500-400 mg capsule 1 cap PO .Bedtime aspirin 81 mg tablet,delayed release (DR/EC) 81 mg PO DAILY omega-3 fatty acids 1,000 mg capsule 1,000 mg PO QDAY cholecalciferol (vitamin D3) 50 mcg (2,000 unit) capsule 50 mcg PO QDAY calcium-magnesium 750-465 mg tablet 1 tab PO DAILY denosumab 60 mg/mL syringe 60 mg subcut [id number] nystatin 100,000 unit/gram cream 1 applic topical BID PRN (Reason: rash) Qty: 30 1RF polyethylene glycol 3350 17 gram/dose powder 4 g PO QDAY PRN (Reason: constipation) Qty: 510 5RF lisinopril 20 mg tablet 20 mg PO QDAY Qty: 90 3RF hydrocodone-acetaminophen 5-300 mg tablet 1 tab PO Q6H PRN (Reason: pain) Qty: 30 0RF omeprazole 20 mg capsule,delayed release(DR/EC) 20 mg PO DAILY Qty: 90 3RF rosuvastatin 10 mg tablet 10 mg PO QDAY Qty: 90 3RF mupirocin 2 % ointment 1 applic topical TID PRN (Reason: rash) Qty: 22 1RF levothyroxine 75 mcg tablet 75 mcg PO DAILY Qty: 90 4RF lisinopril-hydrochlorothiazide 20-12.5 mg tablet 1 tab PO .qod Qty: 45 3RF sulindac 200 mg tablet 200 mg PO BID Qty: 180 3RF cholecalciferol (vitamin D3) 50 mcg (2,000 unit) capsule 50 mcg PO QDAY Qty: 90 3RF Follow Up/Referrals: Gwyn Mckenzie MD [Primary Care Provider] - Stand Alone Forms: [facility] Info Instructions
[2023-03-04 22:23] VITALS: BP 154/89; PULSE 79; RESP 16; TEMP 36.8; O2SAT 98
[2023-03-04 22:24] VITALS: BP 154/89; PULSE 79; RESP 16; TEMP 36.8
== END 2023-03-04 22:24 | disposition home or self-care (01) ==
PROVIDERS: Emergency Provider Student in an Organized Health Care Education/Training Program; PCP Family Medicine
DX: S40.212A Abrasion of left shoulder, initial encounter (principal); S00.81XA Abrasion of other part of head, initial encounter; S60.512A Abrasion of left hand, initial encounter; W01.0XXA Fall on same level from slipping, tripping and stumbling without subsequent striking against object, initial encounter
CPT/HCPCS: 70450; 70486; 72125; 73030; 73130; 99283; 99284

== ENCOUNTER 2023-07-01 10:09 | Outpatient (CLI) | payer MEDICARE, OTHER, SELFPAY | END 2023-07-01 10:10 | disposition home or self-care (01) | LOC: NFLDREF 07-02 06:15 | PROVIDERS: PCP Family Medicine; Referring Provider Family Medicine; Visit Provider Family Medicine | DX: M81.0 Age-related osteoporosis without current pathological fracture (principal); I10 Essential (primary) hypertension; E78.2 Mixed hyperlipidemia; E83.52 Hypercalcemia | CPT/HCPCS: 80048; 80061; 83970; 84100; 84443 ==

== ENCOUNTER 2023-07-02 09:11 | Outpatient (RCR) | payer MEDICARE, OTHER, SELFPAY ==
[2023-07-02 09:27] VITALS: BP 133/77; PULSE 71; RESP 16; TEMP 36.7; O2SAT 97
[2023-07-02] MEDS: DENOSUMAB 60 MG/ML SYRINGE SUBCUT (09:51)
== END 2023-12-29 23:59 | disposition home or self-care (01) ==
LOC: CCIC 09:11
PROVIDERS: PCP Family Medicine; Referring Provider Family Medicine; Visit Provider Family Medicine
DX: M81.0 Age-related osteoporosis without current pathological fracture (principal)
CPT/HCPCS: 96372; J0897

== ENCOUNTER 2023-12-21 09:37 | Outpatient (CLI) | payer MEDICARE, OTHER, SELFPAY ==
--- OUTSIDE RECORDS SUMMARY | 2023-12-21 09:41 | XMS_ITS | Clinical Summary ---
Author Organization [facility] Address [place], [place] [address] Care Team Providers Care Die Stamping Press Operator Name Role Phone Sona Ingram MD Primary Care Provider Telma marte Allergies Active Allergy Reactions Criticality Noted Date Comments Codeine Chest Pain 07/22/2012 Morphine Apnea 07/22/2012 Nitrates Hypotension 07/27/2012 Medications Medication Sig Dispensed Refills Start Date End Date Status levothyroxine (SYNTHROID) 75 mcg tablet Take 75 mcg by mouth once daily. Active polyethylene glycoL (MIRALAX) 17 gram/dose powder Take 17 g by mouth once daily. Active Calcium-Magnesium tablet Take 1 tablet by mouth once daily. Active cholecalciferol (VITAMIN D) 1,000 unit capsule Take 1,000 Units by mouth once daily. Active omega-3 fatty acids-vitamin E (FISH OIL) 1,000 mg cap Take 1 capsule by mouth once daily. Active omeprazole (PRILOSEC) 20 mg capsule Take 20 mg by mouth once daily before a meal. Takes ever other day And PRN Active aspirin 81 mg tablet Take 81 mg by mouth once daily with a meal. Active acetaminophen (TYLENOL EXTRA STRGTH) 500 mg tablet Take 1,000 mg by mouth every 6 hours if needed. Max acetaminophen dose: 4000mg in 24 hrs. Active tamsulosin (FLOMAX) 0.4 mg capsuleIndication s:Incomplete emptying of bladder Take 1 capsule by mouth once daily after a meal. 30 capsule 11 05/27/2016 Active Active Problems Problem Noted Date Diagnosed Date Incomplete emptying of bladder 05/27/2016 Immunizations Name Administration Dates Next Due Influenza Virus, Unspecified 12/25/2015 Influenza, IIV3 (Age >=3 years) 12/30/2011 Pneumococcal Poly,23-Valent (Pneumovax) 12/30/19 10,01/09/2009 Pneumococcal conj 13-Valent (Prevnar 13) 015 Tdap, Unspecified 01/09/2009 Zoster (Zostavax-ZVL, live) 02/05/2009 Social History Tobacco Use Types Packs/Day Years Used Date Smoking Tobacco: Never Alcohol Use Standard Drinks/Week Comments Yes 0 (1 standard drink = 0.6 oz pure alcohol) Occas. 1-2 times/week glass of wine Sex and Gender Information Value Date Recorded Sex Assigned at Not on file Gender Identity Not on file Sexual Orientation Not on file Obstetrics History Last Filed Vital Signs Vital Sign Reading Time Taken Comments Blood Pressure 140/84 06/29/2016 2:10 PM CDT Pulse 88 06/29/2016 2:10 PM CDT Temperature 36.8 ??C (98.2 ??F) 07/30/2012 7:42 AM CD T Respiratory Rate 16 07/30/2012 7:42 AM CDT Oxygen Saturation 99% 07/30/2012 7:42 AM CDT Inhaled Oxygen Concentration - - Weight 95.3 kg (210 lb) 07/27/2012 4:13 PM CDT Height 167.6 cm (5' 6) 07/27/2012 4:13 PM CDT Body Mass Index 33.89 07/27/2012 4:13 PM CDT Plan of Treatment Health Maintenance Due Date Last Done Comments Depression screening for age 12+ 1954 BMI (ht and wt on same day) for age 18+ 1960 DEXA/DXA scan for age 65+ 08/19/2007 Zoster (shingles) series for age 50+ (2 of 3) 04/02/2009 02/05/2009 RSV vaccine for adults or pr egnancy (1 - 1-dose 75+ series) 2017 Tetanus booster 01/09/2019 01/09/2009 COVID-19 vaccine series ( - 2023- season) 2023 Influenza for age 65+ 11/07/2023 12/25/2015, 012 Tdap Completed 01/09/2009 Pneumococcal series for age 65+ Completed 08/08/2014, 12/29/2009, 01/09/2009 Medical Devices Implanted Type Area Supervisor Telephone Answering Service Device Identifier Shelf Expiration Date Model / Serial / Lot Duraform 1x1 Implanted:Qty: 1 on 07/29/2012 at [facility] N/A: Spine [id number] / / [id number] Description:DURAFORM 1X1 Advance Directives * Full Code (Latest Code Status on File) Date Activated Date Inactivated Comments 07/29/2012 6:06 AM 07/30/2012 2:10 PM Care Teams Die Stamping Press Operator Relationship Specialty Start Date End Date Sona Ingram MD PCP - General Family Practice 07/27/12
--- OUTSIDE RECORDS SUMMARY | 2023-12-21 09:41 | XMS_ITS | Continuity of Care Document ---
Author Organization [facility] Address [address] [place] [address] Phone Care Team Providers Care Bundle Tier And Labeler Name Role Phone Will Basil MARY Unavailable [...] krill oil 500 mg capsule - Active aaoeuws-ouyyommts-sn nc 333 mg-133 mg-5 mg tablet - [...] Diagnoses Date Provider Providers Copied on Encounter [facility], [address] [place] [address], [id number] , [place] tel: [phone] [facility] [place] No Information 2 Baltazar Gracia. [address] [place] [address], [id number] , [place]. tel: [phone] [facility], [address] [place] [address], [id number] , [place] tel: [phone] [facility] [place] No Information 1 Arelis Paige. [address], [place], [place], [id number] , [place]. tel:[phone] Referring Provider: Basil Abarca, [address] [place] [address], [address]. tel:[phone] OFFICE/OUTPAT IENT VISIT, EST [facility], [address] [place] [address], [id number] , [place] tel: [phone] [facility] Back Pain (chief complaint) Chronic pain syndromePostlamin ectomy syndrome, not elsewhere classifiedCervica lgiaEncounter for therapeutic drug level monitoring 1 Arelis Paige. [address] [place] [address] [address], [place], [place], [id number] , [place]. tel: [phone] Referring Provider: Basil Abarca, [address] [place] [address], [address]. tel:[phone] OFFICE VISIT, EST TELEMEDICINE [facility], [address] [place] [address], [id number] , [place] tel:[phone] [facility] Back Pain (chief complaint) Chronic pain syndromeCervicalg iaPostlaminectomy syndrome, not elsewhere classifiedLong term (current) use of opiate analgesic 0 Arelis Paige. [address], [place], [place], [id number] , [place]. tel: [phone] Referring Provider: Gwyn Mckenzie, [facility] [address], [place], [address]. tel:[phone] OFFICE/OUTPAT IENT VISIT, [facility], [address] [place], [id number] , [place] tel:[phone] [facility] [place] Back Pain (chief complaint) Chronic pain syndromeCervicalg iaLow back painPrimary osteoarthritis, left shoulderPrimary osteoarthritis, right shoulderImpingeme nt syndrome of left shoulderImpingeme nt syndrome of right shoulderPostlamin ectomy syndrome, not elsewhere classified 0-202 0 Arelis Paige. [address], [place], [place], [id number] , [place]. tel:[phone] Referring Provider: Gwyn Mckenzie [facility] [address], [place], [address]. tel:[phone] Family History Family Member Type Diagnosis Age At Onset No Information Payers Payer name Insurance type Covered alliance party ID Marisa castro(s) Medicare MB [id number] Social History Type Description Quantity Date Captured Comments Sex Female Smoking Status No Information Chief Complaint And Reason For Visit No Information Reason For Referral Reason For Referral No Information Plan Of Treatment Date Type Action Status Goal ANIMAL NUTRITION TEACHER Scanned. Due on 021 due Goal ALT (SGPT). Due on due Goal WATER PROJECT ENGINEER Paperwork. Due on due Goal UDT. Due [...] Goal Weight. Due on d ue Goal ANIMAL NUTRITION TEACHER Scanned. Due on due Goal ALT (SGPT). Due on due Goal WATER PROJECT ENGINEER Paperwork. Due on due Goal UDT. Due [...] Since last OV, she has followed with [facility]. Per pt report, her back has [...] to avoid surgery if possible.Underwent PT at [facility] without benefit. She reports previous lumbar RFA without significant benefit. Reports most recent imaging located at [facility]. Currently managed on Celebrex and Tylenol which provides her with some pain relief. Has previously trialed and failed Gabapentin, methocarbamol, ibuprofen, naproxen, tramadol.Mundo is interested in recommended therapies and would like [facility] to assume management of pain care. [...]
--- OUTSIDE RECORDS SUMMARY | 2023-12-21 09:41 | XMS_ITS | Continuity of Care Document ---
Author Organization [facility] Address [address] [place] [address] Phone Care Team Providers Care Fuel Cell Builder Name Role Phone Ezra BLACKMON, PhD, Braxton Unavailable Unavai lable Allergies, Adverse Reactions, Alerts Substance Reaction Status [...] Active Procedures Procedure Date Office/Outpatient Visit,Est, Mod 2023 Office/Outpatient Visit,[facility], [facility] [place] [facility]/Outpatient Visit,[facility], [facility] [place] Remove Lumbar Spine Lamina, 1 Seg Remove Added Spine Lamina, 1 Seg 2012 Pa Assist Remove Lumbar Spine Lamina, 1 Seg Pa Assist Remove Added Spine Lamina, 1 S eg Office/Outpatient Visit,Est, Mod 2012 Office/Outpatient Visit,Est, Mod 2012 Office/Outpatient Visit,Est, Low 2012 Drain/Inject Major Jointor Bursa 2012 Depomedrol 40 Mg Office/Outpatient Visit,New, [facility] 2011 [place] [facility] [place] exam lower spine 2-3 views 2006 Advance Directives Directive Yes / No Effective Date File Name No Information Encounters Encounter Description Practice Location Reason(s) For Visit Diagnoses Date Provider Providers Copied on Encounter [facility], [address], [place], [place], [id number], [place] tel:[phone] [facility] No Information 4 Ezra Limon. [facility] [place], [facility] [address] [place] [address] [address], [place], [address], [place]. tel:[phone] Office/Outpa tient Visit,Est, Mod [facility], [address], [place], [place], [id number], [place] tel:[phone] [facility] Cervicalgia 4 Ezra Limon. [facility], [address] [place] [address] [address], [place], [address], [place]. [phone] Referring Provider: Paolo Sorensen, [facility] [place] [address], [address], [place], [address]. tel:[phone] Office/Outpa tient Visit,Est, Mod [facility], [address], [place], [place], [id number], [place] tel:[phone] [facility] Other intervertebra l disc degeneration, lumbar regionLow back painOther intervertebra l disc degeneration, lumbar region 1 Roger Boone. [facility], [address], [address], [place], [place], [id number] , [place]. tel:[phone] Referring Provider: Paolo Sorensen, [facility] [place] [address], [address], [place], [address]. tel:[phone] Office/Outpa tient Visit,New, Mod [facility], [address], [place], [place], [id number], [place] tel:[phone] [facility] Other spondylosis, lumbar regionLow back pain 8 Roger Boone. [facility], [address] [place] [address], [address], [place], [place], [id number] , [place]. tel:[phone] Referring Provider: Paolo Sorensen, [facility] [address], [address], [place], [address]. tel:[phone] Z [facility], [address] [place], [place] [address], [place], [address], [place] tel:[phone] [facility] No Information 4-201 3 Guillen Aldair. [facility] [place], [address], [address], [place], [place], [id number] , [place]. tel:[phone] Referring Provider: Sona Sanchez, [facility] [address] [place], [address]. tel:[phone] Office/Outpa tient Visit,Est, Mod Z [facility] [place], [address] [place], [place] [address]ite [address] [place] [address], [address], [place] tel:[phone] [facility] No Information 0 9-201 3 Guillen Aldair. [facility] [place], [address], [address], [place], [place], [id number] , [place]. tel:[phone] Referring Provider: Sona Sanchez, [facility] [address] [place], [address]. tel:[phone] Office/Outpa tient Visit,Est, Mod Z [facility] [place], [address] [place], [place] [address] [facility], [place], [address], [place] tel:[phone] [facility] No Information 0 4-201 3 Guillen Aldair. [facility] [place], [address], [address], [place], [place], [id number] , [place]. tel:[phone] Referring Provider: Elia Morocho, [address], [address]. tel:[phone] Office/Outpa tient Visit,Est, Low Z [facility], [address] [facility], [place], [address], [place] tel:[phone] [facility] Hypothyroidis mGERD 3 Guillenrush Quinteros. [facility], [address], [address], [place], [place], [id number] , [place]. tel:[phone] Referring Provider: Aldair Serrano, [facility] [place] [address], [address], [place], [address]. tel:[phone] Office/Outpa tient Visit,New, Low Z [facility], [address], [place], [address], [place] tel:[phone] [facility] No Information 2 Guillenrush Quinteros. [facility] [place], [address], [address], [place], [place], [id number] , [place]. tel:[phone] Referring Provider: Elia Morocho, [address], [address]. [phone] Office/outpa tient visit,est, mod Z [facility], [address], [place], [address], [place] [phone] [facility] No Information 7 Mindy Quinteros. [facility] [place], [address], [address], [place], [place], [id number] , [place]. [phone] Referring Provider: Elia Morocho, [address], [address]. tel:[phone] Family History Family Member Type Diagnosis Age At Onset No Information Payers Payer name Insurance type Covered democrat ID Marisa castro(s) Medicare [id number] [facility] [id number] Social History Type Description Quantity Date Captured Comments Alcohol Use Details Unknown Caffeine Use Details Unknown Tobacco Use Status No Information Smoking Status No Information Sex Female Chief Complaint And Reason For Visit No [...]
--- OUTSIDE RECORDS SUMMARY | 2023-12-21 09:41 | XMS_ITS | Continuity of Care Document ---
Author Organization [facility] Address [address] [place] [address] Phone Care Team Providers Care Sample Builder Name Role Phone Estuardo Odell MD Unavailable [...] [facility], [address], [place], [address], [place] tel:[phone] [facility] , No Information 9 Cass Marte. [facility] [address], [place], [address], [place]. tel:[phone] [facility], [facility], [place], [address], [place] tel:[phone] [facility] , No Information 9 Cass Marte. [facility] [address], [place], [address], [place]. tel:[phone] Office/Outpa tient Visit, New [facility], [address], [place], [address], [place] tel:[phone] [facility] , OA, generalinzed 9 Cass Marte. [facility] [address], [place], [address], [place]. tel:[phone] Referring Provider: Estuardo Roman, [facility] [address], [place], [address]. tel:[phone] Family History Family Member Type Diagnosis Age At Onset Mother Problem (finding) osteoarthritis Father Problem (finding) osteoarthritis Mother Problem (finding) osteoporosis Payers Payer name Insurance type Covered constitution party ID Authoriza tion(s) No Information Social [...]
== END 2023-12-21 09:38 | disposition home or self-care (01) ==
PROVIDERS: PCP Family Medicine; Visit Provider Family Medicine
DX: E83.52 Hypercalcemia (principal); I10 Essential (primary) hypertension; E78.5 Hyperlipidemia, unspecified; E03.9 Hypothyroidism, unspecified; E66.9 Obesity, unspecified; M81.0 Age-related osteoporosis without current pathological fracture; L57.0 Actinic keratosis; K59.01 Slow transit constipation
CPT/HCPCS: 80048; 80061; 83970; 84100

== ENCOUNTER 2023-12-28 06:02 | Emergency (ER) | payer MEDICARE, OTHER, SELFPAY ==
[2023-12-28 06:11] VITALS: BP 115/74; PULSE 68; RESP 18; TEMP 36.7; O2SAT 99; BMI 28.2
--- NOTE | 2023-12-28 06:51 | ED_ITS ---
HPI - General Adult General Chief complaint: Back Injury/Pain <Jada Alvarado MD - Last Filed: 12/28/23 23:54> Stated complaint: low back pain low abdominal pain <Jada Alvarado MD - Last Filed: 12/28/23 23:54> Time Seen by Provider: 12/28/23 06:18 <Jada Alvarado MD - Last Filed: 12/28/23 23:54> Source: patient and family <Jada Alvarado MD - Last Filed: 12/28/23 23:54> Mode of arrival: ambulatory <Jada Alvarado MD - Last Filed: 12/28/23 23:54> Limitations: no limitations <Jada Alvarado MD - Last Filed: 12/28/23 23:54> History of Present Illness HPI narrative: Patient presents the emergency department with back pain that radiates around to the lower abdomen for the past 2 and half days. She has a history of chronic low back pain secondary to osteoarthritis. This has been worked up extensively per her description. There are not a lot of treatment options available. She says that starting on Wednesday afternoon, her pain started worsening over her baseline. She was unable to get out of bed on Wednesday morning and has had difficulty ambulating ever since. She last took some Tylenol about 8 hours prior to arrival, last dose of ibuprofen was about 18 hours prior to arrival per her description. She also reports that she tried 1 [place] tablet last night at bedtime in it ?did not touch her pain?. She reports that she has a [place] on hand for when her back pain is worse. She last saw her primary care provider about a week ago for unrelated issues. Has not attempted to be seen regarding this episode of back pain or has she had an evaluation in urgent care prior to coming to the ED. There has been no fever. There is no diarrhea, no nausea or vomiting. Appetite is a little decreased. She has urinary frequency. No trauma or injury. No hematuria, no vaginal discharge. No sharon dysuria. Stools are unchanged. No new medication changes. Notes reviewed from that office visit as well as x-rays from June. She has had multiple prior abdominal surgeries including hysterectomy, bladder sling procedure, cholecystectomy. Has a history of diverticulosis as well. Denies loss of bowel or bladder control but does have urinary frequency. Past medical history notable for extensive osteoarthritis of multiple sites including cervical and lumbar spines, hypertension, hyperlipidemia, hypothyroidism all of which are modified. Reports sensitivity to multiple pain medications. Lives independently, nonsmoker. Accompanied by family today. ROS notable for the musculoskeletal and GI symptoms as described above, otherwise denies times 12 systems. <Jada Alvarado MD - Last Filed: 12/28/23 23:54> Related Data Home medications: Home Medications ?Medication ?Instructions ?Recorded ?Confirmed aspirin 81 mg tablet,delayed 81 mg PO DAILY 11/28/21 12/21/23 release calcium-magnesium 750 mg-465 mg 1 tab PO Q OTHER DAY 11/28/21 12/21/23 tablet denosumab 60 mg/mL subcutaneous 60 mg subcut [id number] 11/28/21 12/21/23 syringe glucosamine-chondroitin 500 mg-400 1 cap PO QHS 11/28/21 12/21/23 mg capsule omega-3 fatty acids 1,000 mg 1,000 mg PO QDAY 11/28/21 12/21/23 capsule Previous Rx's ?Medication ?Instructions ?Recorded nystatin 100,000 unit/gram topical 1 applic topical BID PRN rash #30 11/28/21 cream grams mupirocin 2 % topical ointment 1 applic topical TID PRN rash #22 01/12/23 grams cholecalciferol (vitamin D3) 50 50 mcg PO QDAY #90 caps 02/23/23 mcg (2,000 unit) capsule levothyroxine 75 mcg tablet 75 mcg PO DAILY #90 tabs 02/23/23 bisacodyl 10 mg rectal suppository 10 mg CO QDAY PRN constipation #30 12/21/23 (Dulcolax (bisacodyl)) ea hydrocodone 5 mg-acetaminophen 300 1 tab PO Q6H PRN pain #60 tabs 12/21/23 mg tablet lisinopril 20 mg tablet 20 mg PO QDAY #90 tabs 12/21/23 omeprazole 20 mg capsule,delayed 20 mg PO DAILY #90 caps 12/21/23 release polyethylene glycol 3350 17 17 g PO QDAY PRN constipation #510 12/21/23 gram/dose oral powder grams rosuvastatin 10 mg tablet 10 mg PO QDAY #90 tabs 12/21/23 sulindac 200 mg tablet 200 mg PO BID #180 tabs 12/21/23 cyclobenzaprine 10 mg tablet 10 mg PO TID PRN muscle spasm #15 12/28/23 tabs prednisone 20 mg tablet 40 mg (2 x 20 mg) PO DAILY #10 tabs 12/28/23 <Jada Alvarado MD - Last Filed: 12/28/23 23:54> Allergies/adverse reactions: Allergies Allergy/AdvReac Type Severity Reaction Status Date / Time codeine Allergy Severe Chest Pain Verified 12/21/23 09:12 morphine Allergy Severe Difficulty Verified 12/21/23 09:12 Breathing oxycodone Allergy Severe unable to Verified 12/21/23 09:12 talk or respond Nitrate-based vasodilating Allergy Unknown Uncoded 12/21/23 09:12 agent <Jada Alvarado MD - Last Filed: 12/28/23 23:54> [facility] Medical History: Medical History Constipation by delayed colonic transit ?K59.01 - Slow transit constipation (ICD-10) Insomnia ?G47.00 - Insomnia, unspecified (ICD-10) Limited mobility ?Z74.09 - Other reduced mobility (ICD-10) Shoulder pain ?M25.519 - Pain in unspecified shoulder (ICD-10) Burning with urination ?R30.0 - Dysuria (ICD-10) Atypical chest pain ?R07.89 - Other chest pain (ICD-10) Abdominal pain (11/16/13) ?R10.9 - Unspecified abdominal pain (ICD-10) Candidal skin infection ?B37.2 - Candidiasis of skin and nail (ICD-10) <Jada Alvarado MD - Last Filed: 12/28/23 23:54> Surgical History: Surgical History History of hysterectomy (11/13/10) ?Z90.710 - Acquired absence of both cervix and uterus (ICD-10) History of tonsillectomy and adenoidectomy (11/13/10) ?Z90.89 - Acquired absence of other organs (ICD-10) Hx of cholecystectomy (11/13/10) ?Z90.49 - Acquired absence of other specified parts of digestive tract (ICD- 10) 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) ?Z96.652 - Presence of left artificial knee joint (ICD-10) History of lumbar surgery ?Z98.890 - Other specified postprocedural states (ICD-10) S/P right knee arthroscopy (04/06/16) ?Z98.890 - Other specified postprocedural states (ICD-10) Status post total right knee replacement (09/10/14) ?Z96.651 - Presence of right artificial knee joint (ICD-10) <Jada Alvarado MD - Last Filed: 12/28/23 23:54> Family History: Family History Other Colon cancer <Jada Alvarado MD - Last Filed: 12/28/23 23:54> Social History: Social History Smoking Status: Never smoker Second hand tobacco smoke exposure: No How often do you have a drink containing alcohol: never How often do you have six or more drinks on one occasion: Never AUDIT-C Alcohol total score: 0 Non-prescribed substance use: denies use <Jada Alvarado MD - Last Filed: 12/28/23 23:54> Exam Const: Vital Signs, click to edit/add: Vital Signs - 24 hr 12/28/23 06:11 12/28/23 06:53 12/28/23 08:21 Temperature 98.0 F 98.0 F Pulse Rate [Left P ulse Oximeter] 68 78 Respiratory Rate 18 18 Blood Pressure [Ri ght Upper Arm] 115/74 114/70 Pulse Oximetry 99 97 Oxygen Delivery Me thod Room Air Room Air <Jada Alvarado MD - Last Filed: 12/28/23 23:54> Vital Signs, click to edit/add: Vital Signs - 24 hr 12/28/23 06:11 12/28/23 06:53 12/28/23 08:21 Temperature 98.0 F 98.0 F Pulse Rate [Left P ulse Oximeter] 68 78 Respiratory Rate 18 18 Blood Pressure [Ri ght Upper Arm] 115/74 114/70 Pulse Oximetry 99 97 Oxygen Delivery Me thod Room Air Room Air <Baldev Clement DO - Last Filed: 12/28/23 09:01> Documenting provider has reviewed patient's vital signs: yes <Jada Alvarado MD - Last Filed: 12/28/23 23:54> Common normals: no apparent distress <Jada Alvarado MD - Last Filed: 12/28/23 23:54> General appearance: cooperative and well kempt <Jada Alvarado MD - Last Filed: 12/28/23 23:54> Other: Gait is antalgic, seems mildly uncomfortable. <Jada Alvarado MD - Last Filed: 12/28/23 23:54> HENMT: Common normals: normocephalic and head/scalp atraumatic <Jada Alvarado MD - Last Filed: 12/28/23 23:54> Head and scalp: normocephalic and atraumatic <Jada Alvarado MD - Last Filed: 12/28/23 23:54> Face and sinus: normal facial exam <Jada Alvarado MD - Last Filed: 12/28/23 23:54> Mouth: oral and palatal mucosa normal <Jada Alvarado MD - Last Filed: 12/28/23 23:54> Eye: Common normals: conjunctivae normal <Jada Alvarado MD - Last Filed: 12/28/23 23:54> General eye: normal appearance of both eyes <Jada Alvarado MD - Last Filed: 12/28/23 23:54> Conjunctiva: conjunctiva(e) normal <Jada Alvarado MD - Last Filed: 12/28/23 23:54> Resp: Common normals: normal respiratory effort, no use of accessory muscles and clear to auscultation bilaterally <Jada Alvarado MD - Last Filed: 12/28/23 23:54> Effort & inspection: able to speak in complete sentences <MD Markus Peterson Last Filed: 12/28/23 23:54> Auscultation: clear to auscultation bilaterally <Jada Alvarado MD - Last Filed: 12/28/23 23:54> Cardio: Common normals: regular rate, regular rhythm, S1 normal heart sound, S2 normal heart sound and no murmurs <Jada Alvarado MD - Last Filed: 12/28/23 23:54> Rate: regular rate <MD Markus Peterson Last Filed: 12/28/23 23:54> Rhythm: regular rhythm <MD Markus Peterson Last Filed: 12/28/23 23:54> Heart sounds: S1 normal and S2 normal <MD Markus Peterson Last Filed: 12/28/23 23:54> GI: Common normals: Normal to inspection, nondistended, normoactive bowel sounds present, soft to palpation, no hepatosplenomegaly and no masses <Jada Alvarado MD - Last Filed: 12/28/23 23:54> Palpation: soft and no hepatosplenomegaly <Jada Alvarado MD - Last Filed: 12/28/23 23:54> Other: Mildly tender to suprapubic region only. No rebound tenderness or guarding. Very benign exam. <Jada Alvarado MD - Last Filed: 12/28/23 23:54> : Common normals: no CVA tenderness <Jada Alvarado MD - Last Filed: 12/28/23 23:54> Bladder/kidney exam: no CVA tenderness <MD Markus Peterson Last Filed: 12/28/23 23:54> Back & Pelvis: Common normals: no CVA tenderness <MD Markus Peterson Last Filed: 12/28/23 23:54> Other: Surgical scarring consistent with fusion. Kyphosis of thoracic spine. Point tenderness right greater than left spinous process area, entire lumbar spine. SI joints as well, right greater than left. Patient has difficulty doing maneuvers to 0 in on the source of her back pain. Pain is worsened by both flexion and extension and movement. Does have good control over her legs. <Jada Alvarado MD - Last Filed: 12/28/23 23:54> Neuro: Speech: speech normal <Jada Alvarado MD - Last Filed: 12/28/23 23:54> Motor exam: strength 5/5 throughout <Jada Alvarado MD - Last Filed: 12/28/23 23:54> Psych: Appearance: well kempt <Jada Alvarado MD - Last Filed: 12/28/23 23:54> Attitude: engaged <Jada Alvarado MD - Last Filed: 12/28/23 23:54> Activity/motor behavior: appropriate eye contact <Jada Alvarado MD - Last Filed: 12/28/23 23:54> Mood and affect: euthymic mood <Jada Alvarado MD - Last Filed: 12/28/23 23:54> Insight: insight good <Jada Alvarado MD - Last Filed: 12/28/23 23:54> Judgement: judgment good <Jada Alvarado MD - Last Filed: 12/28/23 23:54> Skin: Common normals: no rashes or lesions noted <Jada Alvarado MD - Last Filed: 12/28/23 23:54> General skin exam: no rashes or lesions noted <Jada Alvarado MD - Last Filed: 12/28/23 23:54> Course Course ED Course: 83-year-old female with acute on chronic back pain, radiating around suprapubic area. Differential diagnosis includes flare-up of osteoarthritis, diverticulitis, kidney stone, urinary tract infection, bowel obstruction, colitis, gynecological issue, herniated disc, amongst others. Abdominal exam is quite benign. Back exam is more suspicious for etiology of symptoms. I recommended a urinalysis and some basic blood work to make sure there is not infection but I do not think jumping right into a CT will be helpful. Patient has had imaging of her lumbar spine which has been revealing for the potential causes of her back pain. I recommended that we start some prednisone 40 mg p.o. x1. I did recommend pain medication, as she reported that her hydrocodone is not working at home. She initially accepted but then told the nurse that she would like to try a muscle relaxant instead and declined the pain medication. I do not think that that was a great choice. Will give Flexeril 5 mg p.o. x1, Tylenol and the 40 mg of prednisone and await clinical response. Await labs. If suspicious, consider CT. <Jada Alvarado MD - Last Filed: 12/28/23 23:54> Reevaluation(s) Time of Reevaluation #1: 07:52 <Jada Alvarado MD - Last Filed: 12/28/23 23:54> Reevaluation #1: Patient continues to decline stronger pain medication. Is not noticing improvement from the prednisone or Flexeril at 45 minute interval. Labs have come back showing a mild leukocytosis. This could be from any number of concerns but she is worried about potentially diverticulitis or an intra- abdominal infection. Exam was very reassuring but with the white count, elevated CRP, urinary frequency, recommend CT of the abdomen and pelvis. Will hand over care to incoming day shift partner. <Jada Alvarado MD - Last Filed: 12/28/23 23:54> Vital Signs Vital signs: Initial Vital Signs Temperature 98.0 F 12/28/23 06:11 Temperature Source Temporal Artery Scan 12/28/23 06:11 Pulse Rate 68 12/28/23 06:11 Respiratory Rate 18 12/28/23 06:11 Blood Pressure 115/74 12/28/23 06:11 Blood Pressure Mean 87 12/28/23 06:11 Blood Pressure Position Sitting 12/28/23 06:11 Pulse Oximetry 99 12/28/23 06:11 Oxygen Delivery Method Room Air 12/28/23 06:11 Vital Signs Temperature 98.0 F 12/28/23 06:11 Pulse Rate 68 12/28/23 06:11 Respiratory Rate 18 12/28/23 06:11 Blood Pressure 115/74 12/28/23 06:11 Pulse Oximetry 99 12/28/23 06:11 Oxygen Delivery Method Room Air 12/28/23 06:11 Temperature 98.0 F 12/28/23 06:53 Pulse Rate 78 12/28/23 08:21 Respiratory Rate 18 12/28/23 08:21 Blood Pressure 114/70 10/22/24 08:21 Pulse Oximetry 97 12/28/23 08:21 Oxygen Delivery Method Room Air 12/28/23 08:21 <Jada Alvarado MD - Last Filed: 12/28/23 23:54> Initial Vital Signs Temperature 98.0 F 12/28/23 06:11 Temperature Source Temporal Artery Scan 12/28/23 06:11 Pulse Rate 68 12/28/23 06:11 Respiratory Rate 18 12/28/23 06:11 Blood Pressure 115/74 12/28/23 06:11 Blood Pressure Mean 87 12/28/23 06:11 Blood Pressure Position Sitting 12/28/23 06:11 Pulse Oximetry 99 12/28/23 06:11 Oxygen Delivery Method Room Air 12/28/23 06:11 Vital Signs Temperature 98.0 F 12/28/23 06:11 Pulse Rate 68 12/28/23 06:11 Respiratory Rate 18 12/28/23 06:11 Blood Pressure 115/74 12/28/23 06:11 Pulse Oximetry 99 12/28/23 06:11 Oxygen Delivery Method Room Air 12/28/23 06:11 Temperature 98.0 F 12/28/23 06:53 Pulse Rate 78 12/28/23 08:21 Respiratory Rate 18 12/28/23 08:21 Blood Pressure 114/70 12/28/23 08:21 Pulse Oximetry 97 12/28/23 08:21 Oxygen Delivery Method Room Air 12/28/23 08:21 <Baldev Clement DO - Last Filed: 12/28/23 09:01> Medications Administered Medications: Discontinued Medications Generic Name Dose Route Start Last Admin Trade Name Freq PRN Reason Stop Dose Admin Acetaminophen 1,000 mg 12/28/23 06:44 12/28/23 06:53 Acetaminophen 500 Mg Tablet PO 12/28/23 06:45 1,000 mg ONCE ONE Administration Cyclobenzaprine HCl 5 mg 12/28/23 06:44 12/28/23 06:53 Cyclobenzaprine Hcl 10 Mg Tablet PO 12/28/23 06:45 5 mg ONCE ONE Administration Prednisone 40 mg 12/28/23 06:46 12/28/23 06:53 Prednisone 20 Mg Tablet PO 12/28/23 06:47 40 mg ONCE ONE Administration <Jada Alvarado MD - Last Filed: 12/28/23 23:54> Discontinued Medications Generic Name Dose Route Start Last Admin Trade Name Elena PRN Reason Stop Dose Admin Acetaminophen 1,000 mg 12/28/23 06:44 12/28/23 06:53 Acetaminophen 500 Mg Tablet PO 12/28/23 06:45 1,000 mg ONCE ONE Administration Cyclobenzaprine HCl 5 mg 12/28/23 06:44 12/28/23 06:53 Cyclobenzaprine Hcl 10 Mg Tablet PO 12/28/23 06:45 5 mg ONCE ONE Administration Prednisone 40 mg 12/28/23 06:46 12/28/23 06:53 Prednisone 20 Mg Tablet PO 12/28/23 06:47 40 mg ONCE ONE Administration <Baldev Clement DO - Last Filed: 12/28/23 09:01> Medical Decision Making MDM Narrative Medical decision making narrative: Patient was signed out to me pending results for CT scan. There is constipation but no other intra-abdominal issues. She does states she has has issues with constipation and takes MiraLax daily and had 2 normal bowel movements today. She does states she is scheduled to see GI tomorrow. Considering shows there is no signs of fecal impaction I do not believe is necessary to prescribe her further stool softeners as she will be seeing a GI specialist tomorrow and can talk to them about it at that time. The constipation may be part of what is causing her abdominal discomfort. She is otherwise doing well will be discharged at this time. I will prescribe the medications that Dr. Alvarado recommended. <Baldev Clement DO - Last Filed: 12/28/23 09:01> Lab Data Lab results reviewed: Yes I reviewed the patient's lab results <Jada Alvarado MD - Last Filed: 12/28/23 23:54> Lab results narrative: Mild leukocytosis and elevation of CRP. Other labs stable for patient. Urinalysis reassuring. <Jada Alvarado MD - Last Filed: 12/28/23 23:54> Labs: Lab Results 12/28/23 12/28/23 Range/Units 06:25 07:04 WBC 11.25 H (4.50-11.00) K/uL RBC 3.95 L (4.00-5.20) m/uL Hgb 11.3 L (12.0-16.0) gm/dL Hct 35.9 (33.0-51.0) % MCV 91 (80-100) fL MCH 29 (26-34) pg MCHC 32 (32-36) gm/dL RDW Coeff of [place] 14.3 (11.5-15.5) % Plt Count 381 (140-440) K/uL Neut % (Auto) 78.7 H (42.0-72.0) % Lymph % (Auto) 13.0 L (20-44) % [place] % (Auto) 6.0 (0.0-11.0) % Eos % (Auto) 2.0 (0.0-7.0) % Baso % (Auto) 0.1 (0.0-3.0) % Neut # (Auto) 8.90 H (1.7-7.0) K/uL Lymph # (Auto) 1.50 (0.90-2.90) K/uL [place] # (Auto) 0.70 (0.00-0.90) K/UL Eos # (Auto) 0.20 (0.00-0.50) K/uL Baso # (Auto) 0.00 (0.00-0.30) K/uL Abs Immat Gran (auto) 0.00 (0.00-0.30) K/uL Imm/Tot Granulo (auto) 0.2 % Sodium 140 (135-149) mmol/L Potassium 4.0 (3.6-5.1) mmol/L Chloride 107 (96-114) mmol/L Carbon Dioxide 22 (20-32) mmol/L Anion Gap 11 (7-15) mEq/L BUN 30 (7-30) mg/dL Creatinine 1.1 (0.5-1.5) mg/dL Estimated Creat Clear 37.55 Estimated GFR 50 ml/min Glucose 118 H (60-115) mg/dL Calcium 10.7 H (8.4-10.6) mg/dL C-Reactive Protein 5.8 H (0.5-1.0) mg/dL Procalcitonin 0.19 (<0.50) ng/mL Urine Color Yellow (Yellow) Urine Appearance Clear (Clear) Urine pH 5.5 (5.0-8.5) Ur Specific [place] <= 1.005 (1.000-1.030) Urine Protein Negative (Negative) Urine Glucose (UA) Negative (Negative) Urine Ketones Negative (Negative) Urine Blood Negative (Negative) Urine Nitrite Negative (Negative) Urine Bilirubin Negative (Negative) Urine Urobilinogen 0.2 (0.2-1.0) Ur Leukocyte Esterase Negative (Negative) Urine RBC 0-2 (0-2) Urine WBC 0-2 (0-5) Ur Squamous Epith Cells Few (None-Few) Urine Bacteria Moderate A (None) <Jada Alvarado MD - Last Filed: 12/28/23 23:54> Lab Results 12/28/23 12/28/23 Range/Units 06:25 07:04 WBC 11.25 H (4.50-11.00) K/uL RBC 3.95 L (4.00-5.20) m/uL Hgb 11.3 L (12.0-16.0) gm/dL Hct 35.9 (33.0-51.0) % MCV 91 (80-100) fL MCH 29 (26-34) pg MCHC 32 (32-36) gm/dL RDW Coeff of [place] 14.3 (11.5-15.5) % Plt Count 381 (140-440) K/uL Neut % (Auto) 78.7 H (42.0-72.0) % Lymph % (Auto) 13.0 L (20-44) % [place] % (Auto) 6.0 (0.0-11.0) % Eos % (Auto) 2.0 (0.0-7.0) % Baso % (Auto) 0.1 (0.0-3.0) % Neut # (Auto) 8.90 H (1.7-7.0) K/uL Lymph # (Auto) 1.50 (0.90-2.90) K/uL [place] # (Auto) 0.70 (0.00-0.90) K/UL Eos # (Auto) 0.20 (0.00-0.50) K/uL Baso # (Auto) 0.00 (0.00-0.30) K/uL Abs Immat Gran (auto) 0.00 (0.00-0.30) K/uL Imm/Tot Granulo (auto) 0.2 % Sodium 140 (135-149) mmol/L Potassium 4.0 (3.6-5.1) mmol/L Chloride 107 (96-114) mmol/L Carbon Dioxide 22 (20-32) mmol/L Anion Gap 11 (7-15) mEq/L BUN 30 (7-30) mg/dL Creatinine 1.1 (0.5-1.5) mg/dL Estimated Creat Clear 37.55 Estimated GFR 50 ml/min Glucose 118 H (60-115) mg/dL Calcium 10.7 H (8.4-10.6) mg/dL C-Reactive Protein 5.8 H (0.5-1.0) mg/dL Procalcitonin 0.19 (<0.50) ng/mL Urine Color Yellow (Yellow) Urine Appearance Clear (Clear) Urine pH 5.5 (5.0-8.5) Ur Specific [place] <= 1.005 (1.000-1.030) Urine Protein Negative (Negative) Urine Glucose (UA) Negative (Negative) Urine Ketones Negative (Negative) Urine Blood Negative (Negative) Urine Nitrite Negative (Negative) Urine Bilirubin Negative (Negative) Urine Urobilinogen 0.2 (0.2-1.0) Ur Leukocyte Esterase Negative (Negative) Urine RBC 0-2 (0-2) Urine WBC 0-2 (0-5) Ur Squamous Epith Cells Few (None-Few) Urine Bacteria Moderate A (None) <Baldev Clement DO - Last Filed: 12/28/23 09:01> Imaging Data CT scan abdomen and pelvis: Attestation: I have reviewed the pertinent imaging results. <DO Markus Farmer Last Filed: 12/28/23 09:01> Radiologist's impression: 1. There is no specific visible cause for abdominal pain. 2. Fecal retention. Diverticulosis. No mechanical obstruction. 3. Other incidental nonacute appearing findings as above Please note that all CT scans at this facility use dose modulation, iterative reconstruction, and/or weight-based dosing when appropriate to reduce radiation dose to as low as reasonably achievable. Dictated by Royal Mascorro MD @ 12/28/2023 8:46:45 AM <Baldev Clement DO - Last Filed: 12/28/23 09:01> Discharge Plan Discharge Clinical Impression: Degenerative lumbar disc Constipation Qualifiers: Constipation type: unspecified constipation type Qualified Code(s): K59.00 - Constipation, unspecified <Jada Alvarado MD - Last Filed: 12/28/23 23:54> Patient Disposition: Home w/ Parent or Adult <Jada Alvarado MD - Last Filed: 12/28/23 23:54> Condition: Stable <Jada Alvarado MD - Last Filed: 12/28/23 23:54> Instructions: Degenerative Disc Disease (ED) <Jada Alvarado MD - Last Filed: 12/28/23 23:54> Additional Instructions: As we discussed, your pain seems to be from a flare-up of the arthritis in your back. Your urine does not show any signs of infection. I am recommending a 5 day course of prednisone, some Flexeril which is a muscle relaxant. As we reviewed, your [place] that you have at home does contain some Tylenol but only a little bit. Remember that that will count as 1 Tylenol tablet but not to. It is important that you arm acting out your Tylenol and ibuprofen for pain control. Try to stay around 3000 mg of Tylenol per day and around 1800 mg of ibuprofen per day. This is about a 1000 mg of Tylenol and 600 mg of ibuprofen every 8 hours consistently. Continue using the [place] as you and your primary care doctor have discussed. You declined stronger pain medication today. I will also give you a small supply of Flexeril. For most, the prednisone does kick in within a couple of days. Follow up with her primary care provider if things are not improving by the end of the course of prednisone. <Jada Alvarado MD - Last Filed: 12/28/23 23:54> Activity Level: Activity as Tolerated <Jada Alvarado MD - Last Filed: 12/28/23 23:54> Activity as Tolerated <Baldev Clement DO - Last Filed: 12/28/23 09:01> Discharge Diet: Regular <Jada Alvarado MD - Last Filed: 12/28/23 23:54> Regular <Baldev Clement DO - Last Filed: 12/28/23 09:01> Prescriptions: New cyclobenzaprine 10 mg tablet 10 mg PO TID PRN (Reason: muscle spasm) Qty: 15 0RF prednisone 20 mg tablet 40 mg PO DAILY Qty: 10 0RF No Action glucosamine-chondroitin 500-400 mg capsule 1 cap PO QHS aspirin 81 mg tablet,delayed release (DR/EC) 81 mg PO DAILY omega-3 fatty acids 1,000 mg capsule 1,000 mg PO QDAY calcium-magnesium 750-465 mg tablet 1 tab PO Q OTHER DAY denosumab 60 mg/mL syringe 60 mg subcut [id number] nystatin 100,000 unit/gram cream 1 applic topical BID PRN (Reason: rash) Qty: 30 1RF lisinopril 20 mg tablet 20 mg PO QDAY Qty: 90 3RF bisacodyl [Dulcolax (bisacodyl)] 10 mg suppository 10 mg CO QDAY PRN (Reason: constipation) Qty: 30 1RF omeprazole 20 mg capsule,delayed release(DR/EC) 20 mg PO DAILY Qty: 90 1RF hydrocodone-acetaminophen 5-300 mg tablet 1 tab PO Q6H PRN (Reason: pain) Qty: 60 0RF polyethylene glycol 3350 17 gram/dose powder 17 g PO QDAY PRN (Reason: constipation) Qty: 510 5RF rosuvastatin 10 mg tablet 10 mg PO QDAY Qty: 90 3RF sulindac 200 mg tablet 200 mg PO BID Qty: 180 3RF mupirocin 2 % ointment 1 applic topical TID PRN (Reason: rash) Qty: 22 1RF levothyroxine 75 mcg tablet 75 mcg PO DAILY Qty: 90 4RF cholecalciferol (vitamin D3) 50 mcg (2,000 unit) capsule 50 mcg PO QDAY Qty: 90 3RF <Jada Alvarado MD - Last Filed: 12/28/23 23:54> Follow Up/Referrals: Gwyn Mckenzie MD [Primary Care Provider] - <Jada Alvarado MD - Last Filed: 12/28/23 23:54> Stand Alone Forms: [facility] <Jada Alvarado MD - Last Filed: 12/28/23 23:54>
[2023-12-28 06:52] LABS: Appearance Urine Clear (Clear); Bilirubin Urine Negative (Negative); Blood Urine Negative (Negative); Color Urine Yellow (Yellow); Glucose Urine Negative (Negative); Ketones Urine Negative (Negative); Leukocyte Esterase Urine Negative (Negative); Nitrite Urine Negative (Negative); Protein Urine Negative (Negative); Specific Gravity Urine <= 1.005 (1.000-1.030); Urobilinogen Urine 0.2 (0.2-1.0); pH Urine 5.5 (5.0-8.5)
[2023-12-28 06:53] VITALS: TEMP 36.7
[2023-12-28] MEDS: predniSONE 20 MG TABLET 40 MG PO (06:53)
[2023-12-28] MEDS: ACETAMINOPHEN 500 MG TABLET 1000 MG PO (06:53)
[2023-12-28] MEDS: CYCLOBENZAPRINE HCL 10 MG TABLET 5 MG PO (06:53)
[2023-12-28 07:03] LABS: Bacteria Urine Moderate; RBC Urine 0-2 (0-2); Squamous Epithelial Cell Urine Few (None-Few); WBC Urine 0-2 (0-5)
[2023-12-28 07:10] LABS: Basophils Percent Auto 0.1 % (0.0-3.0); Hematocrit 35.9 % (33.0-51.0); Hemoglobin* 11.3 gm/dL (12.0-16.0); Immature Granulocytes Pct Auto 0.2 %; Mean Corpuscular HGB Conc 32 gm/dL (32-36); Mean Corpuscular Hemoglobin 29 pg (26-34); Mean Corpuscular Volume 91 fL (80-100); Neutrophils Percent Auto 78.7 % (42.0-72.0); Platelet Count* 381 K/uL (140-440); RDW Coefficient of Variation % 14.3 % (11.5-15.5); Red Blood Count 3.95 m/uL (4.00-5.20); White Blood Count* 11.25 K/uL (4.50-11.00)
--- OUTSIDE RECORDS SUMMARY | 2023-12-28 07:16 | XMS_ITS | Continuity of Care Document ---
Author Organization [facility] Address [address] [address] [place] [address] Phone Care Team Providers Care Reducing System Operator Name Role Phone No Information Unavailable Unavailable Advance Directives Directive Yes / No Effective Date File Name No Information Encounters Encounter Description Practice Location Reason(s) For Visit Diagnoses Date Provider Providers Copied on Encounter [facility], [address] [address], [place], [place], [id number], tel:[phone] No Information No Information Referring Provider: Gwyn Mckenzie MD, [address] [place], [address]. tel:[phone] Family History Family Member Type Diagnosis Age At Onset No Information Payers Payer name Insurance type Covered constitution party ID Authoriza tion(s) No Information Social History Type Description Quantity Date Captured Comments Sex Female Smoking Status No Information Chief Complaint And Reason For Visit No Information Reason For Referral Reason For Referral No Information Plan Of Treatment Date Type Action Status Appointment Mundo Trevino BOOKED History Of Present Illness Encounter Date Complaint History Of Prese nt Illness No Information Functional Status Date Functional Assessmen t No Information Instructions Date Instruction Additional Infor mation No Information Assessments Type Assessment Date No Information Patient Care Teams Name Effective Dates (start - stop) Status Members No Information
--- OUTSIDE RECORDS SUMMARY | 2023-12-28 07:16 | XMS_ITS | Patient Health Record ---
Author Organization [facility] Address [address] [place] [address] [address] [facility] [place] [address] Care Team Providers Care Test Technician Name Role Phone Valerio Ponce Primary Care Provider Ezra BLACKMON, PhD, Braxton Unavailable Jaleesai Brandyn Edwards Unavailable [phone] Allergies Allergen (clinical drug ingredient) Drug/Non Drug Allergy documented on EMR Reaction Allergy Type Onset Date Status nitrate (uncoded) Decrease blood pressure Allergy Active codeine Codeine chest pain Drug Allergy Active morphine Morphine anaphylaxis Drug Allergy Activ e oxycodone Oxycodone Confusion Drug Allergy Active tizanidine Tizanidine dizziness Drug Allergy Activ e Reason For Referral Reason Please evaluate and treat the patients neck and low back pain through physical therapy. Diagnosis 1 Cervicalgia (M54.2) Diagnosis 2 Low back pain, unspe cified (M54.50) Referral Organization [facility] Referring Provider First Name Brandyn Referring Provider Last Name Jacey Referring Provider Speciality Physician Regional Truck Driver Referred Provider Specialty Physical The rapist Referral Priority Routine Medications Medication SIG (Take, Route, Frequency, Duration) Notes Start Date End Date Status Lisinopril-hydroCHLOROthiazi de 20-12.5 MG Oral for 90 Active Omeprazole 10 MG 1 capsule 30 minutes before morning meal Orally Once a day Active Levothyroxine Sodium 75 MCG Oral for 90 Active Sulindac 200 MG Oral for 90 Ac tive Rosuvastatin Calcium 10 MG Oral for 90 Active Social History Tobacco Use: Social History Observation Description Date Details (start date - stop date) Never Smoker NA - NA Tobacco Use/Smoking: Question Answer Notes Are you a nonsmoker Alcohol Screen Question Answer Notes Did you have a drink containing alcohol in the p ast year? No Points 0 Interpretation Negative Problems Problem Type SNOMED Code ICD Code Onset Dates Problem Status W/U Status Risk Notes Problem Chronic pain (30583910) Other chronic pain (G89.29) Active confirmed Problem Cervical spondylosis without myelopathy (215371792) Spondylosis without myelopathy or radiculopathy, cervical region (M47.812) Active confirmed Problem Low back pain (680879207) Low back pain (M54.5) Active confirmed Problem Cervicalgia (17243167) Cervicalgia (M54.2) Active confirmed Problem Low back pain (663418201) Low back pain, unspecified (M54.50) Active confirmed Vital Signs Blood pressure diastolic 82 mm Hg 09/07/2023 Height 65 in 09/07/2023 Blood pressure systolic 122 mm Hg 09/07/2023 Weight 187 lbs 09/07/2023 BMI 31.12 kg/m2 09/07/2023 Encounters Encounter Location Date Provider Diagnosis [address] [facility] [address] [facility] [address] [place] [address] 09/07/2023 Brandyn Mari Low back pain, unspecified M54.50 ; Cervicalgia M54.2 and Other chronic pain G89.29 [facility] [address] [facility] [address] [place] [address] 08/20/2023 Valerio Ponce Assessments Encounter Date Diagnosis (ICD Code) Assessment Notes Treatment Notes Treatment Clinical Notes 09/07/2023 Cervicalgia (ICD-10 - M54.2) 09/07/2023 Low back pain, unspecified (ICD-10 - M54.50) 09/07/2023 Other chronic pain (ICD-10 - G89.29) Mundo presents to the clinic for an evaluation regarding her chronic neck, bilateral UE, and low back pain. I have reviewed her symptoms and current medications. I checked the [facility] database and I did not find any inconsistencies. I have printed a referral for physical therapy to no clinic in particular so that Mundo can consider strength and conditioning her neck and low back at a clinic near her home. I will also consider a EMELY and lumbar SCS trial, but Mundo declined these options today. This treatment plan was reviewed with the patient, and she was agreeable. She will return for further evaluation as needed. I will continue to monitor her progress, adjusting her treatment plan as necessary. Plan: 1. Refer to physical therapy - printed for patient 2. Consider EMELY 3. Consider lumbar SCS 4. Follow up as needed Discharge instructions reviewed verbally. Discussed the risks/benefits of prescribed medication. The patient was instructed to return to the office as scheduled and call with any questions, problems or concerns. 09/07/2023 Other Keily, Renetta hull, am serving as a scribe to document services personally performed by Brandyn Mari PA-C, based upon my observations and the provider's statements to me. All documentation has been reviewed by the aforementioned CHRISTINA as well as Valerio Ponce MD, prior to being entered into the official medical record. I, Valerio Ponce MD attest that the above named individual is acting in scribe capacity, has observed Brandyn Mari's performance of the services and has documented them in accordance with her direction. The documentation recorded by the scribe accurately reflects the service Brandyn Mari PA-C, personally performed and the decisions made by her. Plan Of Treatment No Information Insurance Providers Payer Name Payer Address Payer Phone Subscriber Number Group Number Insured Name Patient Relationship to Insured Coverage Start Date Coverage End Date Medicare Part B [employer] [address] [place] [phone] [id number] Mundo Ortega Self - patient is the insured [facility] [address] [place] [address] [id number] Mundo Ortega Self - patient is the insured 8 Medical (General) History Medical History History ICD Code Arthritis Hypertension Osteopenia Hypothyroidism Surgical History Surgery Date(Month/Year) Lumbar decompression 2012 Lumbar fusion 1992
--- OUTSIDE RECORDS SUMMARY | 2023-12-28 07:16 | XMS_ITS | Continuity of Care Document ---
Author Organization [facility] Address [address] [place] [address] Phone Care Team Providers Care Securities Attorney Name Role Phone Ezra BLACKMON, PhD, Braxton Unavailable Unavai lable Allergies, Adverse Reactions, Alerts Substance Reaction Status Criticality nitroglycerin Active No Information morphine Active No Information codeine Active No Information Medications Medication Instructions Dosage Effective Dates (start - stop) Status Comments ROSUVASTATIN CALCIUM (unknown strength) Not Available - Active PROLIA (unknown strength) Not Available - Active LISINOPRIL (unknown strength) Not Available - Active LISINOPRIL-HYDROCHLOROT HIAZIDE (unknown strength) Not Available - Active ASPIRIN (unknown strength) Not Available - Active FIRST-OMEPRAZOLE (unknown strength) Not Available - Active TIROSINT (unknown strength) Not Available - Active Procedures Procedure Date Office/Outpatient Visit,Est, Mod 2023 Office/Outpatient Visit,[facility] 2020 Office/Outpatient Visit,[facility] 2017 Remove Lumbar Spine Lamina, 1 Seg Remove Added Spine Lamina, 1 Seg 2012 Pa Assist Remove Lumbar Spine Lamina, 1 Seg Pa Assist Remove Added Spine Lamina, 1 S eg Office/Outpatient Visit,Est, Mod 2012 Office/Outpatient Visit,Est, Mod 2012 Office/Outpatient Visit,Est, Low 2012 Drain/Inject Major Jointor Bursa 2012 Depomedrol 40 Mg Office/Outpatient Visit,New, [facility] 2011 Office/outpatient visit,est, [facility] 2006 X-ray exam lower spine 2-3 views 2006 Advance Directives Directive Yes / No Effective Date File Name No Information Encounters Encounter Description Practice Location Reason(s) For Visit Diagnoses Date Provider Providers Copied on Encounter [facility], [address], [place], [place], [id number], [place] tel:[phone] [facility] No Information 4 Ezra Limon. [facility] [place], [facility] [address] [place] [address] [address], [place], [address], [place]. tel:[phone] Office/Outpa tient Visit,Est, Mod [facility], [address], [place], [place], [id number], [place] tel:[phone] [facility] Cervicalgia 4 Ezra Limon. [facility], [address] [place] [address] [address], [place], [address], [place]. [phone] Referring Provider: Paolo Sorensen, [facility] [place] [address], [address], [place], [address]. tel:[phone] Office/Outpa tient Visit,Est, Mod [facility], [address], [place], [place], [id number], [place] tel:[phone] [facility] Other intervertebra l disc degeneration, lumbar regionLow back painOther intervertebra l disc degeneration, lumbar region 1 Roger Boone. [facility], [address], [address], [place], [place], [id number] , [place]. tel:[phone] Referring Provider: Paolo Sorensen, [facility] [place] [address], [address], [place], [address]. tel:[phone] Office/Outpa tient Visit,New, Mod [facility], [address], [place], [place], [id number], [place] tel:[phone] [facility] Other spondylosis, lumbar regionLow back pain 8 Roger Boone. [facility], [address] [place] [address], [address], [place], [place], [id number] , [place]. tel:[phone] Referring Provider: Paolo Sorensen, [facility] [address], [address], [place], [address]. tel:[phone] Z [facility], [address] [place], [place] [address], [place], [address], [place] tel:[phone] [facility] No Information 4-201 3 Guillen Aldair. [facility] [place], [address], [address], [place], [place], [id number] , [place]. tel:[phone] Referring Provider: Sona Sanchez, [facility] [address] [place], [address]. tel:[phone] Office/Outpa tient Visit,Est, Mod Z [facility] [place], [address] [place], [place] [address] [place] [address], [address], [place] tel:[phone] [facility] No Information 0 9-201 3 Guillen Aldair. [facility] [place], [address], [address], [place], [place], [address] , [place]. tel:[phone] Referring Provider: Sona Sanchez, [facility] [address] [place], [address]. tel:[phone] Office/Outpa tient Visit,Est, Mod Z [facility] [place], [address] [place], [place] [address]Suite [facility], [place], [address], [place] tel:[phone] [facility] No Information 0 4-201 3 Guillen Aldair. [facility] [place], [address], [address], [place], [place], [id number] , [place]. tel:[phone] Referring Provider: Elia Morocho, [address], [address]. tel:[phone] Office/Outpa tient Visit,Est, Low Z [facility], [address] [facility], [place], [address], [place] tel:[phone] [facility] Hypothyroidis mGERD 3 Guillenrush Quinteros. [facility], [address], [address], [place], [place], [address] , [place]. tel:[phone] Referring Provider: Aldair Serrano, [facility] [place] [address], [address], [place], [address]. tel:[phone] Office/Outpa tient Visit,New, Low Z [facility], [address], [place], [address], [place] tel:[phone] [facility] No Information 2 Guillenrush Quinteros. [facility] [place], [address], [address], [place], [place], [id number] , [place]. tel:[phone] Referring Provider: Elia Morocho, [address], [address]. [phone] Office/outpa tient visit,est, mod Z [facility], [address], [place], [address], [place] [phone] [facility] No Information 7 Mindy Quinteros. [facility] [place], [address], [address], [place], [place], [address] , [place]. [phone] Referring Provider: Elia Morocho, [address], [address]. tel:[phone] Family History Family Member Type Diagnosis Age At Onset No Information Payers Payer name Insurance type Covered alliance party ID Marisa castro(s) Medicare [id number] [facility] [id number] Social History Type Description Quantity Date Captured [...]
--- OUTSIDE RECORDS SUMMARY | 2023-12-28 07:16 | XMS_ITS | Clinical Summary ---
Author Organization [facility] Address [place], [place] [address] Care Team Providers Care Silverlight Developer Name Role Phone Sona Ingram MD Primary [...] 12/29/2009, 01/09/2009 Medical Devices Implanted Type Area Pathology Manager Device Identifier Shelf Expiration Date Model / Serial / Lot Duraform 1x1 Implanted:Qty: 1 on 07/29/2012 at [facility] N/A: Spine [id number] / / [id number] Description:DURAFORM 1X1 Advance Directives * Full Code (Latest Code Status on File) Date Activated Date Inactivated Comments 07/29/2012 6:06 AM 07/30/2012 2:10 PM Care Teams Silverlight Developer Relationship Specialty Start Date End Date Sona Ingram MD PCP - General Family Practice 07/27/12
--- OUTSIDE RECORDS SUMMARY | 2023-12-28 07:16 | XMS_ITS | Continuity of Care Document ---
Author Organization [facility] Address [address] [facility] [place] [address] Phone Care Team Providers Care Sea Air Land Officer Name Role Phone Will Basil MARY Unavailable [...] krill oil 500 mg capsule - Active tvbebfx-stggulwqi-tx nc 333 mg-133 mg-5 mg tablet - [...] Diagnoses Date Provider Providers Copied on Encounter [facility], [address] [place] [address], [id number] , [place] tel: [phone] [facility] [place] No Information 2 Baltazar Gracia. [address] [place] [address], [id number] , [place]. tel: [phone] [facility], [address] [place] [address], [id number] , [place] tel: [phone] [facility] [place] No Information 1 Arelis Paige. [address], [place], [place], [id number] , [place]. tel:[phone] Referring Provider: Basil Abarca, [address] [place] [address], [address]. tel:[phone] OFFICE/OUTPAT IENT VISIT, EST [facility], [address] [place] [address], [id number] , [place] tel: [phone] [facility] Back Pain (chief complaint) Chronic pain syndromePostlamin ectomy syndrome, not elsewhere classifiedCervica lgiaEncounter for therapeutic drug level monitoring 1 Arelis Paige. [address] [place] [address] [address], [place], [place], [id number] , [place]. tel: [phone] Referring Provider: Basil Abarca, [address] [place] [address], [address]. tel:[phone] OFFICE VISIT, EST TELEMEDICINE [facility], [address] [place] [address], [id number] , [place] tel:[phone] [facility] Back Pain (chief complaint) Chronic pain syndromeCervicalg iaPostlaminectomy syndrome, not elsewhere classifiedLong term (current) use of opiate analgesic 0 Arelis Paige. [address], [place], [place], [id number] , [place]. tel: [phone] Referring Provider: Gwyn Mckenzie, [facility] [address], [place], [address]. tel:[phone] OFFICE/OUTPAT IENT VISIT, [facility], [address] [place], [place], [id number] , [place] tel:[phone] [facility] [place] Back Pain (chief complaint) Chronic pain syndromeCervicalg iaLow back painPrimary osteoarthritis, left shoulderPrimary osteoarthritis, right shoulderImpingeme nt syndrome of left shoulderImpingeme nt syndrome of right shoulderPostlamin ectomy syndrome, not elsewhere classified 0-202 0 Arelis Paige. [address], [place], [place], [id number] , [place]. tel:[phone] Referring Provider: Gwyn Mckenzie [facility] [address], [place], [address]. tel:[phone] Family History Family Member Type Diagnosis Age At Onset No Information Payers Payer name Insurance type Covered republican ID Marisa castro(s) Medicare MB [id number] Social History Type Description Quantity Date Captured [...] due Goal UDT. Due on due Goal WEIR FISHERMAN Paperwork. Due on due Goal ALT (SGPT). Due on due Goal SALES FACILITATOR Scanned. Due on due Goal Medication Recon ciliation. Due on due Goal Weight. Due on d ue Goal SALES FACILITATOR Scanned. Due on due Goal ALT (SGPT). Due on due Goal WEIR FISHERMAN Paperwork. Due on due Goal UDT. Due [...] History Of Prese nt Illness Back Pain (comments) Mundo pre sents for followup for lower back and neck pain. Since last OV, she has followed with [facility]. Per pt report, her back has gotten worse and she is not a surgical candidate.She remains uninterested in medications and SCS trial. Patient inquires about medical cannabis certification. Patient is not accompanied today and has no other concerns. Back Pain Duration: chroni c. The problem [...] to avoid surgery if possible.Underwent PT at [facility] without benefit. She reports previous lumbar RFA without significant benefit. Reports most recent imaging located at [facility]. Currently managed on Celebrex and Tylenol which provides her with some pain relief. Has previously trialed and failed Gabapentin, methocarbamol, ibuprofen, naproxen, tramadol.Mundo is interested in recommended therapies and would like [facility] to assume management of pain care. Functional Status Date Functional Assessmen t No Information Instructions Date Instruction Additional Infor mation No Information Assessments Type Assessment Date No Information Patient Care Teams Name Effective Dates (start - stop) Status Members No Information
--- OUTSIDE RECORDS SUMMARY | 2023-12-28 07:16 | XMS_ITS | Continuity of Care Document ---
Author Organization [facility] Address [address] [place] [address] Phone Care Team Providers Care Supervisor Home Economics Name Role Phone Estuardo Odell MD Unavailable [...] [facility], [address], [place], [address], [place] tel:[phone] [facility] , No Information 9 [place]. [facility] [address], [place], [address], [place]. tel:[phone] [facility], [facility], [place], [address], [place] tel:[phone] [facility] , No Information 9 [place]. [facility] [address], [place], [address], [place]. tel:[phone] Office/Outpa tient Visit, New [facility], [address], [place], [address], [place] tel:[phone] [facility] , OA, generalinzed 9 [place]. [facility] [address], [place], [address], [place]. tel:[phone] Referring Provider: Estuardo Roman, [facility] [address], [place], [address]. tel:[phone] Family History Family Member Type Diagnosis Age At Onset Mother Problem (finding) osteoarthritis Father Problem (finding) osteoarthritis Mother Problem (finding) osteoporosis Payers Payer name Insurance type Covered alliance party ID Authoriza tion(s) No Information Social [...]
[2023-12-28 07:22] LABS: Chloride* 107 mmol/L (96-114); Sodium* 140 mmol/L (135-149)
[2023-12-28 07:25] LABS: Creatinine* 1.1 mg/dL (0.5-1.5); Est. Creatinine Clearance* 37.55; Estimated Glomerular Filt Rate 50 ml/min
[2023-12-28 07:26] LABS: Anion Gap 11 mEq/L (7-15); Blood Urea Nitrogen* 30 mg/dL (7-30); Calcium* 10.7 mg/dL (8.4-10.6); Carbon Dioxide* 22 mmol/L (20-32); Glucose* 118 mg/dL (60-115)
[2023-12-28 07:29] LABS: C Reactive Protein* 5.8 mg/dL (0.5-1.0)
[2023-12-28 07:35] LABS: Slide Review Reflex No
[2023-12-28 07:42] LABS: Procalcitonin* 0.19 ng/mL (<0.50)
--- NOTE | 2023-12-28 07:42 | CT_ITS ---
Patient: MARCELLE BRYSON Facility:?[facility] Patient ID:?[id number] Site Patient ID:?[id number]. Site :?[id number] Study:?CT-Abdomen/Pelvis W/ 85CC ISOVUE 370-12/28/2023 8:37:49 AM Ordering Physician:Naida Elias Final Report: INDICATION: Lower abdominal pain COMPARISON: December 24, 2018 TECHNIQUE: CT examination of the abdomen and pelvis was performed following the uneventful intravenous administration of 85 cc of Isovue 370. Thin section axial images were obtained from the lung bases through the pubic symphysis. Oral contrast was not administered. Please note that all CT scans at this facility use dose modulation, iterative reconstruction, and/or weight-based dosing when appropriate to reduce radiation dose to as low as reasonably achievable. FINDINGS: LUNG BASES: No significant lung base abnormality. Minimal linear atelectasis or scarring. Heart size top-normal at the lung bases LIVER/BILIARY SYSTEM:Normal-sized liver. No focal mass.Gallbladder is surgically absent. Prominent biliary ductal system similar to the prior study. This is likely reservoir phenomena associated with cholecystectomy. No visible choledocholithiasis. Correlate with LFTs. ADRENALS: Normal KIDNEYS, URETERS and BLADDER:Normal-sized kidneys. No focal mass. Extrarenal pelvis on the right and parapelvic sinus lymphatic cysts on the left. The bladder appears normal SPLEEN:Normal appearance. PANCREAS: Appears normal. RETROPERITONEUM and MESENTERY: There is no mass, adenopathy or aortic aneurysm. Atherosclerotic vascular calcification GASTROINTESTINAL SYSTEM: There is no evidence of diverticulitis, colitis, mechanical obstruction, or appendicitis. The small bowel as visualized appears normal.Fecal retention. Diverticulosis PELVIS: No mass, adenopathy or free fluid. OSSEOUS STRUCTURES and ABDOMINAL WALL: Extensive arthritic change of the spine. Postsurgical changes of the spine. No acute focal findings. OTHER: No free fluid or free air. IMPRESSION: 1. There is no specific visible cause for abdominal pain. 2. Fecal retention. Diverticulosis. No mechanical obstruction. 3. Other incidental nonacute appearing findings as above Please note that all CT scans at this facility use dose modulation, iterative reconstruction, and/or weight-based dosing when appropriate to reduce radiation dose to as low as reasonably achievable. Dictated by Royal Mascorro MD @ 12/28/2023 8:46:45 AM Signed by:?Royal Mascorro MD @12/28/2023 8:46:45 AM (Electronic Signature)
[2023-12-28 08:21] VITALS: BP 114/70; PULSE 78; RESP 18; O2SAT 97
== END 2023-12-28 09:08 | disposition home or self-care (01) ==
PROVIDERS: Family Medicine; Emergency Provider Student in an Organized Health Care Education/Training Program; PCP Family Medicine
DX: M51.369 Other intervertebral disc degeneration, lumbar region without mention of lumbar back pain or lower extremity pain (principal); K59.00 Constipation, unspecified
CPT/HCPCS: 36415; 74177; 80048; 81001; 84145; 85025; 86140; 87086; 99283; 99284; 99285; A9270; J7512; Q9967

== ENCOUNTER 2024-01-04 08:14 | Outpatient (RCR) | payer MEDICARE, OTHER, SELFPAY ==
[2024-01-04 08:27] VITALS: BP 125/82; PULSE 89; RESP 16; TEMP 36.3; O2SAT 94
[2024-01-04] MEDS: DENOSUMAB 60 MG/ML SYRINGE SUBCUT (08:49)
== END 2024-07-02 23:59 | disposition home or self-care (01) ==
LOC: CCIC 08:14
PROVIDERS: PCP Family Medicine; Referring Provider Family Medicine; Visit Provider Clinical Nurse Specialist
DX: M81.0 Age-related osteoporosis without current pathological fracture (principal)
CPT/HCPCS: 96372; J0897

== ENCOUNTER 2024-01-06 14:08 | Outpatient (CLI) | payer MEDICARE, OTHER, SELFPAY ==
--- NOTE | 2024-01-06 15:00 | CRLHL7_ITS ---
For Patients: As a result of the Century Cures Act, medical imaging exams and procedure reports are released immediately into your electronic medical record. You may view this report before your referring provider. If you have questions, please contact your health care provider. DXA BONE MINERAL DENSITY STUDY Reason for exam: Osteoporosis. Current height (in): 66. Weight (lb): 176. Menopause age: 57. Ethnicity: White. 1. Have you had a previous hip or vertebral fracture? No. 2. Have you had any fractures during your adult life which did not result from significant trauma (e.g., auto accident)? No. 3. Did either of your parents have a hip fracture? Yes. 4. Do you smoke? No. 5. Have you ever taken Glucocorticoids? No. 6. Do you have rheumatoid arthritis? No. 7. Do you have secondary osteoporosis? No. 8. Do you drink 3 or more alcoholic drinks per day? No. 9. Are you being treated for osteoporosis? Yes. 10. Have you ever taken any of the following medications: Actonel, Evista, Fosamax, Miacalcin, Reclast, Boniva, Forteo, HRT (i.e., estrogen/hormone therapy), Protelos, Prolia, Vitamin D, Calcium, other ??? please specify. ANSWER: Yes, Vitamin D, Prolia (i.e., denosumab), and calcium. 11. Do you have any of the following medical conditions: Anorexia or bulimia, asthma or emphysema, end stage renal disease, hyperparathyroidism, any seizure disorders, cancer, inflammatory bowel diseases, hysterectomy, other ??? please specify. ANSWER: Yes, hysterectomy. 12. What was your maximum height (inches)? 68. 13. Do you perform weight bearing exercise regularly? No. 14. Do you regularly consume dairy products? No. 15. Do you drink caffeinated beverages? Yes. 16. At what age did your period start? 15. 17. Are you premenopausal? No. 18. How many full-term pregnancies have you had? 4. 19. Have you ever missed your period for more than 6 months in a row (not including or menopause)? No. TECHNIQUE: Bone mineral density study was performed using the [employer]. FINDINGS: The results of the study expressed as bone mineral density (BMD) are as follows: Neck Left: BMD: 0.729 g/cm2. T-score: -1.1. Z-score: 1.3 Right: BMD: 0.692 g/cm2. T-score: -1.4. Z-score: 0.9 Total Left: BMD: 0.776 g/cm2. T-score: -1.4. Z-score: 0.8 Right: BMD: 0.746 g/cm2. T-score: -1.6. Z-score: 0.5 Radius Left 33%: BMD: 0.589 g/cm2. T-score: -1.8. Z-score: 1.5 IMPRESSION: Osteopenia. *Comparison exams done prior to 08/2019 were performed on different unit, [employer]. COMPARISON: Compared with scan of 01/23/2021, the bone mineral density has decreased by 2.3 percent at the hip and increased by 25.7 percent at the left forearm. Compared with scan of 02/24/2018, the bone mineral density has increased by 12.1 percent at the hip. Sean Sheikh M.D. Diagnostic Radiologist [email or web address] irving/Dictated by: Sean Sheikh MD @ 01/07/2024 11:18:00 AM (Electronically Signed)
== END 2024-01-06 14:09 | disposition home or self-care (01) ==
LOC: RAD 14:09
PROVIDERS: PCP Family Medicine; Visit Provider Family Medicine
DX: M81.0 Age-related osteoporosis without current pathological fracture (principal); M85.89 Other specified disorders of bone density and structure, multiple sites
CPT/HCPCS: 77080

== ENCOUNTER 2024-02-22 10:13 | Outpatient (CLI) | payer MEDICARE, OTHER, SELFPAY | END 2024-02-22 10:14 | disposition home or self-care (01) | LOC: LKVREF 10:15 | PROVIDERS: PCP Family Medicine; Visit Provider Family Medicine | DX: E03.9 Hypothyroidism, unspecified (principal); E83.52 Hypercalcemia; I10 Essential (primary) hypertension | CPT/HCPCS: 80048; 84443 ==

== ENCOUNTER 2024-07-12 08:24 | Outpatient (CLI) | payer MEDICARE, OTHER, SELFPAY | END 2024-07-12 08:25 | disposition home or self-care (01) | LOC: NFLDREF 07-19 02:11 | PROVIDERS: PCP Family Medicine; Referring Provider Family Medicine; Visit Provider Family Medicine | DX: M81.0 Age-related osteoporosis without current pathological fracture (principal) | CPT/HCPCS: 82310; 82565; 82575; 83735; 84100 ==

== ENCOUNTER 2024-07-13 06:56 | Outpatient (CLI) | payer MEDICARE, OTHER, SELFPAY ==
--- NOTE | 2024-07-13 09:12 | P.ANES_ITS ---
Anesthesia Charges Start Date/Time Anesthesia Start Date: 07/13/24 Anesthesia Start Time: 08:08 Stop Date/Time Anesthesia Stop Date: 07/13/24 Anesthesia Stop Time: 09:08 Summary Extremes of Age - Over 70 or under 1: TALENT ADVISOR Coding CPT Codes CPT Codes: ANES UPR LWR GI NDSC PX - 78481 ([id number]) P2 - PATIENT W/MILD SYST DISEASE, QK - TRACK LAYING MACHINE OPERATOR 2-4 CNCRNT ANES PROC, QX - TALENT ADVISOR SVC W/ MD MED DIRECTION Additional Codes: Summary - Extremes of Age - Over 70 or under 1: TALENT ADVISOR ([id number])
--- NOTE | 2024-07-13 09:12 | W.ANESCHARGE ---
Anesthesia Charges Start Date/Time Anesthesia Start Date: 07/13/24 Anesthesia Start Time: 08:08 Stop Date/Time Anesthesia Stop Date: 07/13/24 Anesthesia Stop Time: 09:08 Summary Extremes of Age - Over 70 or under 1: LEAD SYSTEMS DEVELOPER Coding CPT Codes CPT Codes: ANES UPR LWR GI NDSC PX - 03777 ([id number]) P2 - PATIENT W/MILD SYST DISEASE, QK - MASSAGE COORDINATOR 2-4 CNCRNT ANES PROC, QX - LEAD SYSTEMS DEVELOPER SVC W/ MD MED DIRECTION Additional Codes: Summary - Extremes of Age - Over 70 or under 1: LEAD SYSTEMS DEVELOPER ([id number])
--- NOTE | 2024-07-13 09:41 | P.ANES_ITS ---
Anesthesia Charges Start Date/Time Anesthesia Start Date: 07/13/24 Anesthesia Start Time: 08:08 Stop Date/Time Anesthesia Stop Date: 07/13/24 Anesthesia Stop Time: 09:08 Summary Extremes of Age - Over 70 or under 1: MDA Coding CPT Codes CPT Codes: ANES UPR LWR GI NDSC PX - 23964 ([id number]) QK - OPERATING ROOM TECHNICIAN 2-4 CNCRNT ANES PROC, QX - REGIONAL ECONOMIC LIAISON SVC W/ MD MED DIRECTION, P2 - PATIENT W/MILD SYST DISEASE Additional Codes: Summary - Extremes of Age - Over 70 or under 1: MDA ([id number])
== END 2024-07-13 06:57 | disposition home or self-care (01) ==
LOC: OP CLINIC 06:57
PROVIDERS: PCP Family Medicine; Visit Provider Surgery
DX: Z12.11 Encounter for screening for malignant neoplasm of colon (principal); Z80.0 Family history of malignant neoplasm of digestive organs; D12.4 Benign neoplasm of descending colon; K57.30 Diverticulosis of large intestine without perforation or abscess without bleeding; K21.9 Gastro-esophageal reflux disease without esophagitis; K44.9 Diaphragmatic hernia without obstruction or gangrene; K31.7 Polyp of stomach and duodenum; K64.4 Residual hemorrhoidal skin tags
CPT/HCPCS: 00813; 43239; 43251; 45385; 88305; 99100; J2405; J2704; J3490

== ENCOUNTER 2024-07-21 13:05 | Outpatient (RCR) | payer MEDICARE, OTHER, SELFPAY ==
[2024-07-21 13:22] VITALS: BP 123/78; PULSE 72; RESP 16; TEMP 36.5; O2SAT 95
[2024-07-21] MEDS: DENOSUMAB 60 MG/ML SYRINGE SUBCUT (14:04)
== END 2025-01-17 23:59 | disposition home or self-care (01) ==
LOC: CCIC 13:05
PROVIDERS: PCP Family Medicine; Referring Provider Family Medicine; Visit Provider Clinical Nurse Specialist
DX: M81.0 Age-related osteoporosis without current pathological fracture (principal)
CPT/HCPCS: 96372; J0897

== ENCOUNTER 2024-08-16 08:39 | Outpatient (CLI) | payer MEDICARE, OTHER, SELFPAY | END 2024-08-16 08:40 | disposition home or self-care (01) | LOC: LKVREF 08:41 | PROVIDERS: PCP Family Medicine; Visit Provider Family Medicine | DX: M81.0 Age-related osteoporosis without current pathological fracture (principal) | CPT/HCPCS: 80048 ==

== ENCOUNTER 2024-10-18 07:53 | Outpatient (CLI) | payer MEDICARE, OTHER, SELFPAY ==
--- NOTE | 2024-10-18 08:15 | CRLHL7_ITS ---
For Patients: As a result of the Century Cures Act, medical imaging exams and procedure reports are released immediately into your electronic medical record. You may view this report before your referring provider. If you have questions, please contact your health care provider. BILATERAL DIGITAL SCREENING MAMMOGRAM WITH COMPUTER-AIDED DETECTION AND TOMOSYNTHESIS CLINICAL HISTORY: Routine screening exam. COMPARISON: 01/23/2021, 02/24/2018, 12/13/2014. TECHNIQUE: Digital mammogram in CC and MLO projections including computer-aided detection (CAD). Tomosynthesis was used in this interpretation. BREAST COMPOSITION: There are scattered areas of fibroglandular density. FINDINGS: RIGHT Breast: Focal asymmetric density in the upper outer quadrant 7 cm from the nipple. LEFT Breast: No suspicious findings. IMPRESSION: RIGHT breast asymmetry/mass. RECOMMENDATIONS: Additional mammographic views of the RIGHT breast including 3D spot compression cc/MLO. RIGHT breast ultrasound may also be required. The [facility] will contact the patient. A lay language report of this examination will be provided to the patient. BI-RADS Category 0: Incomplete: Need Additional Imaging Evaluation Dictated by Sean Sheikh MD @ 10/18/2024 10:31:02 AM jj/Dictated by: Sean Sheikh MD @ 10/18/2024 10:31:00 AM (Electronically Signed)
== END 2024-10-18 07:54 | disposition home or self-care (01) ==
LOC: MAMMO 07:53
PROVIDERS: PCP Family Medicine; Visit Provider Family Medicine
DX: Z12.31 Encounter for screening mammogram for malignant neoplasm of breast (principal); N63.10 Unspecified lump in the right breast, unspecified quadrant
CPT/HCPCS: 77063; 77067

== ENCOUNTER 2024-11-01 07:22 | Outpatient (CLI) | payer MEDICARE, OTHER, SELFPAY ==
--- NOTE | 2024-11-01 07:45 | CRLHL7_ITS ---
For Patients: As a result of the Cures Act, medical imaging exams and procedure reports are released immediately into your electronic medical record. You may view this report before your referring provider. If you have questions, please contact your health care provider. DIGITAL DIAGNOSTIC RIGHT MAMMOGRAM USING TOMOSYNTHESIS RIGHT BREAST ULTRASOUND CLINICAL HISTORY: RIGHT breast mass/asymmetry. COMPARISON: 10/18/2024, 01/23/2021, 02/24/2018. TECHNIQUE: Digital RIGHT mammogram in two projections. Tomosynthesis was used in this interpretation. Real-time ultrasound imaging of RIGHT breast with imaging documentation. BREAST COMPOSITION: There are scattered areas of fibroglandular density. FINDINGS: 3D spot compression CC/MLO RIGHT breast mammogram images submitted. Decreased conspicuity of previously noted asymmetric density. No architectural distortion or suspicious mass. No suspicious calcifications. Targeted RIGHT breast ultrasound performed at 10 o`clock 7 cm from the nipple. Normal breast tissue. No fibrocystic change. No suspicious mass. IMPRESSION: No evidence of malignancy. RECOMMENDATIONS: Routine screening mammography. A lay language report of this examination will be provided to the patient. BI-RADS Category 2: Benign Dictated by Sean Sheikh MD @ 11/01/2024 9:30:52 AM jj/Dictated by: Sean Sheikh MD @ 11/01/2024 9:30:00 AM (Electronically Signed)
--- NOTE | 2024-11-01 08:15 | CRLHL7_ITS ---
For Patients: As a result of the Cures Act, medical imaging exams and procedure reports are released immediately into your electronic medical record. You may view this report before your referring provider. If you have questions, please contact your health care provider. SEE DIGITAL DIAGNOSTIC RIGHT MAMMOGRAM PERFORMED SAME DAY [email or web address]:[email or web address] irving/Dictated by: Sean Sheikh MD @ 11/01/2024 9:30:00 AM (Electronically Signed)
== END 2024-11-01 07:23 | disposition home or self-care (01) ==
LOC: MAMMO 07:23
PROVIDERS: PCP Family Medicine; Visit Provider Family Medicine
DX: N63.10 Unspecified lump in the right breast, unspecified quadrant (principal); R92.8 Other abnormal and inconclusive findings on diagnostic imaging of breast
CPT/HCPCS: 76642; 77065; G0279

== ENCOUNTER 2025-01-02 08:34 | Outpatient (CLI) | payer MEDICARE, OTHER, SELFPAY | END 2025-01-02 08:35 | disposition home or self-care (01) | LOC: LKVREF 08:38 | PROVIDERS: PCP Family Medicine; Visit Provider Family Medicine | DX: E03.9 Hypothyroidism, unspecified (principal); E78.00 Pure hypercholesterolemia, unspecified; I10 Essential (primary) hypertension; M81.0 Age-related osteoporosis without current pathological fracture; R53.83 Other fatigue; E10.9 Type 1 diabetes mellitus without complications | CPT/HCPCS: 80053; 80061; 82306; 83735; 84100; 84443 ==